=== PATIENT | male | born 1955 | race Caucasian/White ===

== ENCOUNTER → 2021-10-04 13:42 | Outpatient (CLI) | payer OTHER, SELFPAY ==
--- NOTE | 2021-10-04 13:56 | CT_ITS ---
STUDY: CT CHEST, ABDOMEN T PELVIS WITH CONTRAST REASON FOR EXAM: Male, 66 years old. 60 pound weight loss within 2 years. RADIATION DOSAGE (If Supplied By Facility): CTDIvol = ( 13.97 ) mGy, DLP = ( 1282.7 ) mGycm TECHNIQUE: Transaxial imaging was performed following intravenous administration of IV 100mL Isovue-300. Individualized dose optimization techniques were used for this CT. COMPARISON: No relevant priors. FINDINGS: CHEST There is a 2.7 sono by 1.5 cm x 4.5 cm well-defined rounded soft tissue density in the subcutaneous tissues overlying the mid thoracic region in the midline. This may represent a sebaceous cyst. The lungs are normal. There is no demonstrated pleural abnormality. There are calcifications of the coronary arteries. There are multiple small lymph nodes within the mediastinum, which are normal in size and morphology most compatible with reactive lymph hyperplasia. Normal hilar regions. Normal unenhanced pulmonary arteries. Normal aorta arch and descending thoracic aorta. There are multi-level degenerative changes of the thoracic spine. ABDOMEN The visualized lung bases are unremarkable. The visualized portions of the heart are within normal limits. Normal liver. Normal gallbladder and extrahepatic biliary system. Normal spleen. There are pancreatic calcifications in the distribution of the ducts consistent with chronic pancreatitis. There is atrophy of the pancreas with the diffusely dilated pancreatic duct. There is a 3.2 cm x 4.3 cm enlargement of the head of the pancreas with multiple cystic findings within the. A portion of the findings may represent a dilated pancreatic duct. This as a mass effect on the duodenum at the level of the ampulla VATER. A mass lesion should be ruled out. Endoscopic correlation is recommended. Normal bilateral adrenal glands. There is a 4.1 cm by 4.4 cm cyst in the upper lateral portion of the right kidney. Normal left kidney. Normal visualized stomach. Normal small intestine. Moderate amount of fecal material is seen in the colon. The appendix is visualized and appears normal. Normal abdominal aorta. Normal inferior vena cava. Normal retroperitoneum. Normal abdominal wall. There are diffuse degenerative changes of the visualized lumbar spine. Grade 1 anterior listhesis of L5 on S1 due to spondylolysis of the pars interarticularis of the L5 vertebrae. PELVIS Normal urinary bladder. A penile prosthesis with the reservoir is seen in the right side of the pelvis. Normal visualized small intestine. Normal visualized colon. There is no pelvic fluid. There is no pelvic lymphadenopathy or mass lesion. Normal visualized pelvic arteries. CT/CT Chest, Abd, Pel w/Contrast IMPRESSION: Pancreatic atrophy with diffuse calcifications within it. Predominantly cystic mass in the head of the pancreas with indentation at the level of the ampulla of VATER. Correlation with the ERCP is recommended. Electronically Signed: Shivam Toscano MD at 15:20 EST , Service support ,
[2021-10-05 07:04] LABS: CREATININE FINGERSTICK 0.57 mg/dL (0.70-1.30); EGFR FINGERSTICK > 60 mL/min (>60)
== END ==
PROVIDERS: PCP Family Medicine
DX: K86.89 Other specified diseases of pancreas (principal); R63.4 Abnormal weight loss; Z87.891 Personal history of nicotine dependence
CPT/HCPCS: 71260; 74177; Q9967

== ENCOUNTER 2025-03-03 18:31 | Inpatient (IN) | payer MEDICARE, SELFPAY ==
[2025-03-03 18:32] VITALS: BP 132/85; PULSE 97; RESP 16; TEMP 36.8; O2SAT 96; BMI 27.6
--- NOTE | 2025-03-03 18:49 | ED.VIS.FALL ---
HPI HPI - Fall History of Present Illness Chief Complaint: Fall Informant: patient and family Narrative Narrative: 69-year-old male tripped over a dog leash landing on his left side. He notes pain medial aspect of the left hip. He states his left arm was tucked underneath him and knocked the wind out of him but is not having any rib pain or any shortness of breath now. He states the arm is fine. He is on apixaban for atrial fibrillation. He denies any head injury. No neck or back pain. Patient has seen prior orthopedics in [place] with [facility] but denies seeing a local orthopedist. [facility] Medical History Diastolic CHF New onset atrial fibrillation (04/2022) Venegas's palsy PUD (peptic ulcer disease) Kidney stone Long QT interval Erectile dysfunction Diverticulosis Essential hypertension Hyperlipidemia Type 2 diabetes mellitus without complication GERD (gastroesophageal reflux disease) Pancreatic insufficiency Home Medications ?Medication ?Instructions ?Recorded ?Last Taken ?Type amlodipine 10 mg tablet 10 mg PO DAILY 05/26/22 Unknown History apixaban 5 mg tablet (Eliquis) 5 mg PO BID 05/26/22 Unknown History atorvastatin 40 mg tablet 40 mg PO QHS 05/26/22 Unknown History insulin glargine 100 unit/mL (3 15 unit subcut DAILY 05/26/22 Unknown History mL) subcutaneous pen (Basaglar KwikPen U-100 Insulin) [id number] 1 cap PO TID 05/26/22 Unknown History 36,000-114,000-180,000 unit capsule,delay rel (Creon) lisinopril 10 mg tablet 10 mg PO DAILY 05/26/22 Unknown History metformin 500 mg tablet,extended 1,000 mg PO DAILY 05/26/22 Unknown History release 24 hr metoprolol succinate 25 mg 25 mg PO DAILY 05/26/22 Unknown History tablet,extended release 24 hr omeprazole 40 mg capsule,delayed 40 mg PO DAILY 05/26/22 Unknown History release sitagliptin phosphate 100 mg 100 mg PO DAILY 05/26/22 Unknown History tablet (Januvia) Allergy/AdvReac Type Severity Reaction Status Date / Time canagliflozin (From Invokana) Allergy Unknown UTI Verified 03/03/25 18:37 saxagliptin (From Onglyza) Allergy Unknown muscle Verified 03/03/25 18:37 aches sildenafil (From Viagra) Allergy Unknown headaches Verified 03/03/25 18:37 Family History Father Cancer CAD (coronary artery disease) Sister Breast cancer Surgical History History of esophagogastroduodenoscopy (EGD) (01/17/18) History of colonoscopy (02/10/12) H/O circumcision (06/09/20) H/O repair of right rotator cuff H/O colonoscopy with polypectomy (01/17/18) Social History Smoking Status: Former smoker Smokeless tobacco user: chewing tobacco Electronic Cigarette Use: with nicotine how long ago did patient quit smokin years ago alcohol intake: current substance use type: does not use caffeine: Yes Type: carbonated beverages, coffee and tea ROS ROS ED Constitutional Constitutional ED: Denies chills, fever(s) or weight loss Eyes Eyes: Denies change in vision or diplopia ENT ENT ED: Denies ear pain, rhinorrhea or sore throat Cardiovascular Cardiovascular: Denies chest pain, orthopnea, palpitations or racing heartbeat Respiratory/Chest Respiratory/Chest: Denies cough, dyspnea or orthopnea Gastrointestinal Gastrointestinal: Denies abdominal pain, diarrhea, nausea or vomiting Genitourinary Genitourinary ED: Denies dysuria, hematuria or urinary frequency Musculoskeletal Musculoskeletal: Reports other Details: Left hip pelvic pain ; Denies arthralgias or myalgias Integumentary Denies abscess or rash Neurologic Neurologic: Denies headache(s) or weakness Psychiatric Psychiatric: Denies anxiety, depression, suicidal ideation or suicidal thoughts Endocrine Endocrinology: Denies polydipsia, polyphagia or polyuria Allergic/Immunologic Allergic/Immunologic ED: Denies mouth swelling, tongue swelling or urticaria EXAM Physical Exam Const Vital Signs: 03/03/25 18:32 03/03/25 18:39 03/03/25 20:21 Temperature 98.2 F 98.2 F Temperature Source Oral Pulse Rate 97 113 H Respiratory Rate 16 18 Respiratory Effort Normal Non-Labored Respiratory Depth Normal Respiratory Pattern Normal Blood Pressure 132/85 H 132/74 H Blood Pressure Mean 100 93 Pulse Ox 96 94 Oxygen Delivery Method Room Air Positive well nourished and well developed General Appearance ED: well developed and NAD HEENT Reports normocephalic, head/scalp atraumatic and moist mucous membranes Eyes PERRL and EOMs intact bilaterally Neck full ROM, no lymphadenopathy, supple and no JVD Chest Wall inspection of chest normal and palpation of chest normal Resp normal respiratory effort and clear to auscultation bilaterally Cardio regular rate, regular rhythm and no murmurs GI normal to inspection, nondistended, normoactive bowel sounds and non-tender Palpation: soft Back/Spine no CVA tenderness and normal ROM Extremity Extremity Narrative: I do not appreciate any shortening or rotation. He has tenderness over the pubic bone on the left. No greater trochanter tenderness. Slight discomfort with logroll. Neurovascular intact distally. General Extremety ED: Negative for edema General Extremity: Negative for edema Neuro oriented x3 and CN's II-XII intact bilaterally Hubbard Coma Scale: document GCS findings Spontaneous Obeys Commands Oriented 15 Sensorium / Orientation: alert Motor Exam: strength 5/5 throughout Psych mental status grossly normal Mood & Affect: Negative for depressed or tearful Skin no rashes or lesions noted and no wounds MDM MDM MDM Narrative Medical decision making narrative: Differential diagnosis includes but not limited to the left hip fracture pubic rami fracture pelvic fracture rib fracture intracranial hemorrhage anticoagulation anemia My independent interpretation of the plain films of the left hip and pelvis is a impacted femoral neck fracture. Independent interpretation of the chest x-ray is no acute process. CT of the brain was obtained which is negative for intracranial hemorrhage. Basic blood work was obtained. Patient received pain medication. I spoke with orthopedics and then hospitalist service. Plan is admission for further management History & Record Review Discussion w/independent historian: Patient and Family Lab Data Attestation: I reviewed the patient's lab results. Labs: Laboratory Results - last 24 hr 03/03/25 19:22 WBC 7.6 RBC 4.54 L Hgb 13.4 Hct 38.0 L MCV 83.7 MCH 29.5 MCHC 35.3 RDW Std Deviation 40.3 RDW Coeff of Jocelin 13.5 Plt Count 167 MPV 9.7 Immature Gran % (Auto) 0.500 Neut % (Auto) 84.8 H Lymph % (Auto) 5.8 L [place] % (Auto) 8.4 Eos % (Auto) 0.1 Baso % (Auto) 0.4 Absolute Neuts (auto) 6.5 Absolute Lymphs (auto) 0.44 L Nucleated RBC % 0 PT 17.8 H INR 1.4 APTT 28.3 Sodium 141 Potassium 3.5 Chloride 105 Carbon Dioxide 23.7 Anion Gap 12 BUN 8 Creatinine 0.84 Estim Creat Clear Calc 82.89 Est GFR (MDRD) Non-Af 94 BUN/Creatinine Ratio 9.3 L Glucose 244 H Calcium 8.9 Total Bilirubin 1.07 AST 44 H ALT 68 H Alkaline Phosphatase 102 Total Protein 6.8 Albumin 3.7 Globulin 3.1 Albumin/Globulin Ratio 1.2 Radiography Diagnostic Testing: Clinical Impression(s) from Imaging Studies Hip/Pelvis X-Ray 03/03/25 18:55 IMPRESSION: Acute impacted femoral neck fracture. Reading Location: [facility] Chest X-Ray 03/03/25 19:04 IMPRESSION: Poor inspiration with some bibasilar atelectasis. Reading Location: [facility] Brain CT 03/03/25 19:13 IMPRESSION: 1. No acute intracranial finding. 2. Findings of chronic microvascular ischemic changes and age-related changes. Reading Location: [facility] EKG Initial EKG: Attestation: I personally reviewed and interpreted this EKG as follows: Comments: Atrial fibrillation with rapid ventricular sponsor 118 bpm. Management Discussion w/another healthcare provider: Hospitalist (Dr Luther) and Oil [employer] Operator Chief (Dr Mckoy) Discharge Plan Dx/Rx/DC Orders Clinical Impression: Anticoagulated, Atrial fibrillation, Fracture of femoral neck, left Disposition Disposition: Acute Care Hospital [facility]
--- NOTE | 2025-03-03 18:55 | RAD_ITS ---
PROCEDURE: HIP, UNI W/ PELVIS 2-3 VIEWS 03/03/2025 REASON FOR EXAM: INJURY Left TECHNIQUE: One (1) view of the left hip FINDINGS: Bones: Acute impacted fracture of the transcervical femoral neck. Joints: Unremarkable. Soft tissues: Penile implant. Other: RAD/HIP, UNI W/ Pelvis 2-3 Views IMPRESSION: Acute impacted femoral neck fracture. Reading Location: [id number]
--- NOTE | 2025-03-03 19:04 | RAD_ITS ---
PROCEDURE: CHEST 1 VIEW (PORTABLE) 03/03/2025 REASON FOR EXAM: FALL TECHNIQUE: Frontal view of the chest. COMPARISON: None FINDINGS: Hardware: None Heart: Unremarkable. Lungs: Poor inspiration with some bibasilar atelectasis. Bones: Mild dextroscoliosis of the thoracic spine. Other: None RAD/Chest 1 View (Portable) IMPRESSION: Poor inspiration with some bibasilar atelectasis. Reading Location: [id number]
[2025-03-03] MEDS: oxyCODONE 5 MG Tablet PO (19:10)
--- NOTE | 2025-03-03 19:13 | CT_ITS ---
EXAM: BRAIN/HEAD WITHOUT CONTRAST CLINICAL HISTORY: 69 y/o M with FALL. COMPARISON: None. TECHNIQUE: Routine CT imaging of the head without IV contrast. Additional multiplanar reformats were obtained. Dose reduction techniques were used including intermediate exposure control (AEC),iterative reconstruction technique, and/or mA and/or KV dose adjustments based on patient's size. FINDINGS: The ventricles, sulci and cisterns are normal for patient age. There is no evidence of intracranial hemorrhage. There is no midline shift, mass effect, or extra-axial collection. Mild scattered supratentorial white matter hypodensities. The harrison-white matter interfaces are otherwise maintained. There are mild, diffuse, symmetrical, periventricular and subcortical white matter lucencies, a nonspecific finding, which may represent sequela of small vessel disease in a patient of this age. Retention cyst or polyp within the right maxillary sinus. The visualized paranasal sinuses and mastoids are otherwise unremarkable. Unremarkable orbits. No acute calvarial fracture or scalp hematoma. CT/Brain/Head without Contrast IMPRESSION: 1. No acute intracranial finding. 2. Findings of chronic microvascular ischemic changes and age-related changes. Reading Location: [id number]
[2025-03-03 19:35] LABS: Absolute Lymphocyte Count 0.44 X10^3/uL (0.83-4.51); Absolute Neutrophil Count 6.5 X10^3/uL (2.0-7.7); Basophil# 0.03 X10^3/uL; Basophil% 0.4 % (0-1); Eosinophil# 0.01 X10^3/uL; Eosinophils% 0.1 % (0-5); Hemoglobin 13.4 g/dL (13.0-16.5); Lymphocyte # 0.44 X10^3/ul (0.83-4.51); Lymphocyte % 5.8 % (19-41); Mean Corp Hgb Conc 35.3 g/dL (32-36); Mean Corpuscular Hgb 29.5 pg (27.0-32.0); Mean Corpuscular Volume 83.7 fL (80-94); Mean Platelet Vol. 9.7 fl (6.2-12.0); Monocyte# 0.64 X10^3/uL; Monocyte% 8.4 % (0-10); NRBC Flagged by Analyzer 0 % (0-5); Neutrophil # 6.45 X10^3/uL (2.7-7.7); Neutrophil % 84.8 % (47-70); POSITIVE DIFFERENTIAL YES; Platelet Count 167 K/mm3 (150-450); RBC Distribution Width CV 13.5 % (11.6-14.6); RBC Distribution Width SD 40.3 fl (35.1-43.9); Red Blood Count 4.54 M/mm3 (4.6-6.2); White Blood Count 7.6 K/mm3 (4.4-11.0)
--- NOTE | 2025-03-03 19:39 | EKG12_ITS ---
Test Reason : A-FIB Blood Pressure : */* mmHG Vent. Rate : 118 BPM Atrial Rate : * BPM P-R Int : * ms QRS Dur : 104 ms QT Int : 298 ms P-R-T Axes : * -18 -37 degrees QTcB Int : 417 ms Atrial fibrillation with rapid ventricular response Possible Lateral infarct , age undetermined Inferior infarct , age undetermined Abnormal ECG Confirmed by JESSENIA MCLEAN, ARCHANA ([id number]), electronic news gathering editor ADAMS VEGA ([id number]) on 03/04/2025 8:07:33 AM Referred By: Mio Luther Confirmed By: ARCHANA RUELAS MD
--- NOTE | 2025-03-03 19:50 | PCA ---
NO OLD EKG
[2025-03-03 19:54] LABS: International Normalized Ratio 1.4; Prothrombin Time (Protime)PT. 17.8 SECONDS (11.7-14.9)
[2025-03-03 19:55] LABS: Partial Thromboplast Time 28.3 Seconds (24.1-36.2)
--- NOTE | 2025-03-03 20:06 | HP.PCM.HOS_ITS ---
[facility] - General General Date of Admission: 03/03/25 Date of Service: 03/03/25 Chief Complaint: Left Femoral Neck Fracture. [facility] Narrative CARLOS A MEI, is a 69 M with a past medical history of essential hypertension; on amlodipine, metoprolol and lisinopril, hyperlipidemia; on atorvastatin, overweight; with BMI of 27.6 this admission, DM-2; of unknown control on metformin, sitagliptin an insulin glargine 15U sq daily, chronic atrial fibrillation (since 2021); on apixaban, history of long QT interval, history of chronic diastolic CHF; with preserved LVEF, history of pancreatic insufficiency; on pancreatic enzymes AC, history of ED; s/p penile implant with intolerance to sildenafil (headache), history of Venegas's palsy, history of renal calculi, history of diverticulosis, history of colonoscopy; s/p polypectomies (2001+2017), GERD with history of PUD; on omeprazole and OA; s/p Right rotator cuff repair who presents to [facility] ER complaining of Left hip pain after fall. Mr. Mei reports his symptoms began approximately one hour prior to arrival after he tripped over a dog leash and fell onto his Left side. He denies LOC or significant head trauma with is fall. He states his Left arm was tucked behind him and he had the wind knocked out of him with subsequent severe Left hip pain and inability to ambulate. He also denies other significant pain or injury with is fall, fever, chills, nausea, vomiting, diarrhea, constipation, abdominal pain, chest pain or headache. In the ER he was noted to have X-ray evidence of acute impacted Left femoral neck fracture a nd he was then admitted to the general medical floor for ongoing care for a stay that is expected to extend beyond 2 midnights. [facility] Medical History Diastolic CHF New onset atrial fibrillation (04/2022) Venegas's palsy PUD (peptic ulcer disease) Kidney stone Long QT interval Erectile dysfunction Diverticulosis Essential hypertension Hyperlipidemia Type 2 diabetes mellitus without complication GERD (gastroesophageal reflux disease) Pancreatic insufficiency Home Medications ?Medication ?Instructions ?Recorded ?Last Taken ?Type amlodipine 10 mg tablet 10 mg PO DAILY bp 05/26/22 U nknown History apixaban 5 mg tablet (Eliquis) 5 mg PO BID blood thinn er 05/26/22 Unknown History atorvastatin 40 mg tablet 40 mg PO QHS hld 05/26/22 Un known History insulin glargine 100 unit/mL (3 30 unit subcut DAILY d m 05/26/22 Unknown History mL) subcutaneous pen (Basaglar KwikPen U-100 Insulin) [id number] 1 cap PO TID pancreatic 04/29 Unknown History 36,000-114,000-180,000 unit capsule,delay rel (Creon) lisinopril 10 mg tablet 10 mg PO DAILY bp 05/26/22 U nknown History metformin 500 mg tablet,extended 1,000 mg PO DAILY brianne betes 05/26/22 Unknown History release 24 hr metoprolol succinate 25 mg 25 mg PO DAILY heart Unknown History tablet,extended release 24 hr omeprazole 40 mg capsule,delayed 40 mg PO DAILY gerd 0 05/26/22 Unknown History release sitagliptin phosphate 100 mg 100 mg PO DAILY see md Unknown History tablet (Januvia) Allergy/AdvReac Type Severity Reaction Status Date / Time canagliflozin (From Invokana) Allergy Unknown UTI Verified 03/03/25 18:37 saxagliptin (From Onglyza) Allergy Unknown muscle Verified 03/03/25 18:37 aches sildenafil (From Viagra) Allergy Unknown headaches Verified 03/03/25 18:37 Family History Father Cancer CAD (coronary artery disease) Sister Breast cancer Surgical History History of esophagogastroduodenoscopy (EGD) (01/17/18) History of colonoscopy (02/10/12) H/O circumcision (06/09/20) H/O repair of right rotator cuff H/O colonoscopy with polypectomy (01/17/18) Social History Smoking Status: Former smoker Smokeless tobacco user: chewing tobacco Electronic Cigarette Use: with nicotine how long ago did patient quit smokin years ago alcohol intake: current substance use type: does not use caffeine: Yes Type: carbonated beverages, coffee and tea ROS ROS Narrative Review of Systems: Constitutional: Patient denies fever or chills. Eyes: Patient denies changes in vision or discharge from eyes. ENT: Patient denies runny nose, sore throat or ear pain. Resp: Patient denies shortness of breath or cough. CV: Patient denies chest pain, palpitations, heart racing or lower extremity edema. GI: Patient denies abdominal pain, nausea, vomiting, diarrhea or constipation. : Patient denies dysuria, hematuria or urinary frequency. MSK: Patient admits to Left hip pain made worse with movement but not fully relieved by rest. Skin: Patient denies abscess, rash, wounds or jaundice. Psych: Patient denies symptoms of uncontrolled depression or anxiety. Neuro: Patient denies headache, paresthesias or focal neurologic deficits. Allergy: Patient denies lip swelling, tongue swelling or urticaria. Hematology: Patient admits to easy bleeding on apixaban. Endocrinology: Patient denies polyuria, polydipsia, polyphagia or heat/cold intolerance. 14 point ROS otherwise negative except for positives noted above in HPI. Vital Signs Vital Signs Vital Signs: 03/03/25 18:32 03/03/25 18:39 Temperature 98.2 F Temperature Source Oral Pulse Rate 97 Respiratory Rate 16 Respiratory Effort Normal Non-Labored Respiratory Depth Normal Respiratory Pattern Normal Blood Pressure 132/85 H Blood Pressure Mean 100 Pulse Ox 96 Oxygen Delivery Method Room Air Weight Weight: 176 lb 2.389 oz Body Mass Index (BMI) 27.6 Physical Exam Const alert, oriented x3, no apparent distress, average body habitus and healthy appearing General Appearance: cooperative HEENT normocephalic, head/scalp atraumatic, hearing grossly normal bilaterally and moist oral mucous membranes Eyes PERRL, EOMs intact bilaterally and conjunctivae normal Neck no lymphadenopathy, supple and no JVD Resp normal respiratory effort, no retractions, no use of accessory muscles and clear to auscultation bilaterally Cardio Cardio Narrative: Irregularly irregular at ~80 bpm. GI normal to inspection, nondistended, normoactive bowel sounds, soft to palpation, non-tender and non-distended Extremity Extremity Narrative: LLE shortened and externally rotated with positive log-roll and no signs of neurovascular compromise with good pulses and sensation throughout. Skin Skin Narrative: Patient has no evidence of rash, abscess, wound or jaundice. Neuro oriented x3, CN's II-XII intact bilaterally, moves all extremities and no focal motor deficits Sensorium / Orientation: awake, alert, oriented to person, oriented to place and oriented to time Speech: speech normal Psych affect normal Results Medical Records Data Attestation: I reviewed the patient's medical records Lab / Micro Data Attestation: I reviewed the patient's lab results. 03/03/25 19:22 03/03/25 19:22 Labs: Laboratory Results - last 24 hr 03/03/25 19:22: WBC 7.6, RBC 4.54 L, Hgb 13.4, Hct 38.0 L, MCV 83.7, MCH 29.5, MCHC 35.3, RDW Std Deviation 40.3, RDW Coeff of Jocelin 13.5, Plt Count 167, MPV 9.7, Immature Gran % (Auto) 0.500, Neut % (Auto) 84.8 H, Lymph % (Auto) 5.8 L, [place] % (Auto) 8.4, Eos % (Auto) 0.1, Baso % (Auto) 0.4, Absolute Neuts (auto) 6.5, Absolute Lymphs (auto) 0.44 L, Nucleated RBC % 0, PT 17.8 H, INR 1.4, APTT 28.3 Imaging Radiology Impression Hip/Pelvis X-Ray 03/03/25 18:55 IMPRESSION: Acute impacted femoral neck fracture. Reading Location: [facility] Chest X-Ray 03/03/25 19:04 IMPRESSION: Poor inspiration with some bibasilar atelectasis. Reading Location: [facility] Brain CT 03/03/25 19:13 IMPRESSION: 1. No acute intracranial finding. 2. Findings of chronic microvascular ischemic changes and age-related changes. Reading Location: [facility] Assessment & Plan Assessment/Plan (1) Fracture of femoral neck, left: QUALIFIERS: Encounter type: initial encounter Fracture type: c losed Qualified Code(s): S72.002A - Fracture of unspecified part of neck of left femur, initial encounter for closed fracture (2) Atrial fibrillation: QUALIFIERS: Atrial fibrillation type: unspecified chronic Q ualified Code(s): I48.20 - Chronic atrial fibrillation, unspecified (3) Anticoagulated: (4) Essential hypertension: PLAN: Plan 1. X-ray evidence of acute impacted Left femoral neck fracture after fall - Admit to general medical floor with telemetric monitoring. Keep n.p.o. after midnight on March 04, 2025 for planned ORIF with procedure delayed due to patient already being on apixaban at time of injury. Give acetaminophen as needed for [id number] (level 1-5/10) pain or fever. Give morphine IV as needed for severe (level 6-10/10) pain. Finally, orthopedic surgery consultation by Dr. Mckoy is appreciated in advance, with anticipated delay in surgical intervention until March 05, 2025 due to patient being on apixaban. 2. Chronic atrial fibrillation (since 2021); on apixaban complicating #1 - Hold apixaban until ORIF has been completed. 3. Essential hypertension; on amlodipine, metoprolol and lisinopril - Maintain home regimen plus give prn IV hydralazine for systolic blood pressure > 160 mmHg. 4. Hyperlipidemia; on atorvastatin - Resume statin. 5. Overweight; with BMI of 27.6 this admission - Weight loss will be recommended. Check TSH. 6. DM-2; of unknown control on metformin, sitagliptin an insulin glargine 15U sq daily - Patient to be decreased to insulin glargine 8U sq daily plus lowest intensity SSI. Hold metformin and sitagliptin while inpatient. Check HgbA1c to objectively assess quality of diabetic control. 7. History of long QT interval - Noted. 8. History of chronic diastolic CHF; with preserved LVEF - Noted. 9. History of pancreatic insufficiency; on pancreatic enzymes AC - Continue pancreatic enzymes as previous once patient resumes oral intake. 10. History of ED; s/p penile implant with intolerance to sildenafil (headache) - Noted. 11. History of Venegas's palsy - Noted. 12. History of renal calculi - Noted with no evidence of recurrence at this time. 13. History of diverticulosis - Noted. 14. History of colonoscopy; s/p polypectomies (2001+2017) - Noted. 15. GERD with history of PUD; on omeprazole - Continue PPI as before. 16. OA; s/p Right rotator cuff repair - Give acetaminophen according to pain scale outlined in #1. 17. DVT prophylaxis - SCD's only on RLE. We will hold off on preoperative blood thinners in patients with traumatic fracture especially in this case with patient already on apixaban which will be held. Orthopedic surgeon to decide upon postoperative DVT prophylaxis. Total time: Approximately (but not less than) 55 minutes. Charges/Coding Visit Charges Inpatient E&M: 05816 Init Hosp L2
[2025-03-03 20:21] VITALS: BP 132/74; PULSE 113; RESP 18; TEMP 36.8; O2SAT 94
[2025-03-03 20:22] LABS: ALB/GLOB Ratio 1.2 RATIO (0.9-2.4); AST(SGOT) 44 U/L (<=37); Alanine Aminotransfer ALT/SGPT 68 U/L (<=46); Albumin, Serum 3.7 g/dL (3.4-4.8); Alkaline Phosphatase 102 U/L (40-129); Anion Gap 12 (5-15); BUN 8 mg/dL (4-19); BUN/Creat Ratio 9.3 RATIO (10-20); Calcium,Total 8.9 mg/dL (7.6-11.0); Carbon Dioxide 23.7 mmol/L (21.0-32.0); Chloride 105 mmol/L (98-108); Creatinine, Serum 0.84 mg/dL (0.70-1.20); EST Glomerular Filtration Rate 94 (>60); Estimated Creatinine Clearance 82.89 ml/min (50-250); Globulin 3.1 g/dL (2.2-4.2); Glucose 244 mg/dL (70-99); Potassium 3.5 mmol/L (3.3-5.1); Protein, Total 6.8 g/dL (5.9-8.4); Sodium Level 141 mmol/L (133-145); Total Bilirubin 1.07 mg/dL (0.00-1.30)
[2025-03-03 20:32] VITALS: BP 131/78; PULSE 98; RESP 14; O2SAT 97
--- NOTE | 2025-03-03 20:50 | CM.ED ---
Social Work SW met with patient and patients son. Patient stated that he was walking the dog when he got tangled in the dog leash, causing him to fall. Patients son stated that patient would be coming to live with him during recovery as the son only has one step to enter a one story home. Patient stated that he agreed with the plan. Jen Cox, DRAWING PRESS OPERATOR, [employer]
[2025-03-03 20:59] VITALS: BMI 26.4
[2025-03-03 21:03] VITALS: PULSE 111
[2025-03-03 21:11] VITALS: BP 137/56; PULSE 117; RESP 18; TEMP 36.8; O2SAT 95
[2025-03-03] MEDS: 0.9% Saline Lock 10 ML Syringe IV (21:34)
[2025-03-03] MEDS: 0.9% Normal Saline (1000mL) 1,000 ML 70 ML IV (21:34)
[2025-03-03] MEDS: Atorvastatin Calcium 40 MG Tablet PO (21:44)
[2025-03-03 22:17] LABS: Magnesium 1.5 mg/dL (1.5-2.2)
[2025-03-03 22:52] LABS: Bedside Glucose 161 mg/dL (74-106)
[2025-03-04 00:20] LABS: Bedside Glucose 135 mg/dL (74-106)
[2025-03-04 02:30] VITALS: BP 117/77; PULSE 99; RESP 16; TEMP 36.6; O2SAT 94
[2025-03-04] MEDS: Morphine 2 MG/ML Syringe IV (03:43)
[2025-03-04 04:35] LABS: Absolute Lymphocyte Count 0.93 X10^3/uL (0.83-4.51); Absolute Neutrophil Count 5.7 X10^3/uL (2.0-7.7); Basophil# 0.03 X10^3/uL; Basophil% 0.4 % (0-1); Eosinophil# 0.01 X10^3/uL; Eosinophils% 0.1 % (0-5); Hematocrit 37.2 % (40-54); Lymphocyte # 0.93 X10^3/ul (0.83-4.51); Lymphocyte % 12.8 % (19-41); Mean Corp Hgb Conc 34.9 g/dL (32-36); Mean Corpuscular Hgb 29.3 pg (27.0-32.0); Mean Platelet Vol. 9.8 fl (6.2-12.0); Monocyte# 0.57 X10^3/uL; Monocyte% 7.9 % (0-10); NRBC Flagged by Analyzer 0 % (0-5); Neutrophil % 78.5 % (47-70); Platelet Count 178 K/mm3 (150-450); RBC Distribution Width CV 13.6 % (11.6-14.6); Red Blood Count 4.43 M/mm3 (4.6-6.2); White Blood Count 7.3 K/mm3 (4.4-11.0)
[2025-03-04 05:11] LABS: ALB/GLOB Ratio 1.2 RATIO (0.9-2.4); AST(SGOT) 30 U/L (<=37); Alanine Aminotransfer ALT/SGPT 56 U/L (<=46); Albumin, Serum 3.5 g/dL (3.4-4.8); Alkaline Phosphatase 94 U/L (40-129); Anion Gap 12 (5-15); BUN 8 mg/dL (4-19); BUN/Creat Ratio 11.6 RATIO (10-20); Calcium,Total 8.6 mg/dL (7.6-11.0); Carbon Dioxide 24.1 mmol/L (21.0-32.0); Chloride 104 mmol/L (98-108); Creatinine, Serum 0.71 mg/dL (0.70-1.20); EST Glomerular Filtration Rate 99 (>60); Estimated Creatinine Clearance 80.33 ml/min (50-250); Glucose 144 mg/dL (70-99); Phosphorus 3.2 mg/dL (2.7-4.5); Potassium 3.1 mmol/L (3.3-5.1); Protein, Total 6.5 g/dL (5.9-8.4); Sodium Level 141 mmol/L (133-145); Total Bilirubin 1.29 mg/dL (0.00-1.30)
[2025-03-04 06:00] VITALS: BMI 27.8
[2025-03-04 06:36] LABS: Bedside Glucose 105 mg/dL (74-106)
[2025-03-04 06:36] LABS: Hemoglobin A1c 8.8 % (<=5.6)
[2025-03-04 08:18] VITALS: BP 112/72; PULSE 108; RESP 18; TEMP 36.9; O2SAT 93
[2025-03-04 08:24] VITALS: PULSE 108
[2025-03-04] MEDS: Creon 12,000 unit DR CapSULE 3 CAP PO ×3 (08:24→16:46)
[2025-03-04] MEDS: Insulin Glargine-YFGN 100 UNIT/ML Pen 8 UNIT SC (08:24)
[2025-03-04] MEDS: amLODIPine 10 MG Tablet PO (08:24)
[2025-03-04] MEDS: Lisinopril 10 MG Tablet PO (08:24)
[2025-03-04] MEDS: Metoprolol(XL)Succ 25 MG Tablet PO (08:24)
[2025-03-04] MEDS: Pantoprazole Sodium 40 MG Tablet PO (08:24)
--- NOTE | 2025-03-04 08:43 | PN.HOSP_ITS ---
Reason for Visit Reason for Visit: Left hip pain status post mechanical fall Subjective Subjective Mr. Oliveira is a 69-year-old white male who presented to the emergency department [facility] on 03/03/2025 with left hip pain after mechanical fall. Patient reported that he was out with his dog and tripped over the leash and fell onto his left side. He denied loss of consciousness or significant head trauma but did complain of left hip pain following his fall. Fall resulted in severe pain and the patient was unable to ambulate following some squad was called. Vital signs on presentation showed temperature 98.2, heart rate 97, respiratory 16, blood pressure is 132/85 and pulse ox was 96% on room air. CBC was unremarkable. Coags were slightly elevated but anticipated due to apixaban use. Chemistry panel showed an elevated glucose at 244. Transaminases were elevated slightly but normalized this morning. Hip and pelvic x-rays showed an acute impacted femoral neck fracture, chest x-ray was unremarkable other than poor inspiratory effort and some basilar atelectasis bilaterally. CT of the brain was unremarkable other than for chronic microvascular ischemic changes. The case was discussed with orthopedic surgery and they will evaluate the patient today. I do anticipate surgery soon depending on length of time Shay needs to be held his are not clear what his last dose was at this time. Patient states his pain is well-controlled preoperatively. Denies any current issues. Current plan is to go home with his son and his family is one-step to enter. I did discuss with patient we will have to see how he does with therapy after surgery and he voiced understanding. Does not seem resistant to placement if needed. Objective Data Objective Data Vital Signs: Vital Signs Temp Pulse Resp BP Pulse Ox O2 Del Method 98.5 F 108 H 18 112/72 93 Room Air 03/04/25 08:18 03/04/25 08:24 03/04/25 08:18 03/04/25 08:18 03/04/25 08:18 03/04/25 08:20 Oxygen Delivery Method Room Air Weight: 80.5 kg Body Mass Index (BMI) 27.8 Intake & Output: Intake and Output for Last 24 Hours 03/02/25 03/03/25 03/04/25 23:59 23:59 23:59 Output Total 700 / 700 Balance -700 / -700 Lab / Micro Data 03/04/25 03:52 03/04/25 03:52 Labs: Laboratory Results - last 24 hr 03/03/25 19:22: WBC 7.6, RBC 4.54 L, Hgb 13.4, Hct 38.0 L, MCV 83.7, MCH 29.5, MCHC 35.3, RDW Std Deviation 40.3, RDW Coeff of Jocelin 13.5, Plt Count 167, MPV 9.7, Immature Gran % (Auto) 0.500, Neut % (Auto) 84.8 H, Lymph % (Auto) 5.8 L, [place] % (Auto) 8.4, Eos % (Auto) 0.1, Baso % (Auto) 0.4, Absolute Neuts (auto) 6.5, Absolute Lymphs (auto) 0.44 L, Nucleated RBC % 0, PT 17.8 H, INR 1.4, APTT 28.3, Sodium 141, Potassium 3.5, Chloride 105, Carbon Dioxide 23.7, Anion Gap 12, BUN 8, Creatinine 0.84, Estim Creat Clear Calc 82.89, Est GFR (MDRD) Non-Af 94, BUN/Creatinine Ratio 9.3 L, Glucose 244 H, Calcium 8.9, Magnesium 1.5, Total Bilirubin 1.07, AST 44 H, ALT 68 H, Alkaline Phosphatase 102, Total Protein 6.8, Albumin 3.7, Globulin 3.1, Albumin/Globulin Ratio 1.2 03/03/25 21:27: POC Glucose 161 H 03/04/25 00:00: POC Glucose 135 H 03/04/25 03:52: WBC 7.3, RBC 4.43 L, Hgb 13.0, Hct 37.2 L, MCV 84.0, MCH 29.3, MCHC 34.9, RDW Std Deviation 41.0, RDW Coeff of Jocelin 13.6, Plt Count 178, MPV 9.8, Immature Gran % (Auto) 0.300, Neut % (Auto) 78.5 H, Lymph % (Auto) 12.8 L, [place] % (Auto) 7.9, Eos % (Auto) 0.1, Baso % (Auto) 0.4, Absolute Neuts (auto) 5.7, Absolute Lymphs (auto) 0.93, Nucleated RBC % 0, Sodium 141, Potassium 3.1 L , Chloride 104, Carbon Dioxide 24.1, Anion Gap 12, BUN 8, Creatinine 0.71, Estim Creat Clear Calc 80.33, Est GFR (MDRD) Non-Af 99, BUN/Creatinine Ratio 11.6, G lucose 144 H, Hemoglobin A1c 8.8, Calcium 8.6, Phosphorus 3.2, Total Bilirubin 1.29, AST 30, ALT 56 H, Alkaline Phosphatase 94, Total Protein 6.5, Albumin 3.5, Globulin 3.0, Albumin/Globulin Ratio 1.2, TSH 2.160, Blood Type A POSITIVE, Antibody Screen NEGATIVE 03/04/25 06:17: POC Glucose 105 Radiography Diagnostic Testing: Radiology Impression Hip/Pelvis X-Ray 03/03/25 18:55 IMPRESSION: Acute impacted femoral neck fracture. Reading Location: [facility] Chest X-Ray 03/03/25 19:04 IMPRESSION: Poor inspiration with some bibasilar atelectasis. Reading Location: [facility] Brain CT 03/03/25 19:13 IMPRESSION: 1. No acute intracranial finding. 2. Findings of chronic microvascular ischemic changes and age-related changes. Reading Location: [facility] Physical Exam Const alert, oriented x3, no apparent distress, average body habitus, healthy appearing and well nourished Constitutional Narrative: Pleasant, elderly, white male, lying in bed, appears comfortable currently, nontoxic HEENT head/scalp atraumatic and moist oral mucous membranes Head and Scalp: normocephalic Resp normal respiratory effort, no retractions, no use of accessory muscles and clear to auscultation bilaterally Auscultation: Negative for rales, rhonchi or wheezes Cardio regular rate, regular rhythm, S1 normal heart sound, S2 normal heart sound, no murmurs, no rub, no gallops and no clicks GI normal to inspection, nondistended, normoactive bowel sounds, soft to palpation and non-tender Extremity no clubbing, cyanosis or edema Extremity Narrative: Left lower extremity is slightly shortened and externally rotated Neuro oriented x3 and no focal motor deficits Neuro Narrative: Unable to move left lower extremity due to pain left hip Speech: speech normal Psych affect normal Psych Narrative: Very pleasant, interacts appropriately Assessment & Plan Assessment/Plan (1) Fracture of femoral neck, left: QUALIFIERS: Encounter type: initial encounter Fracture type: kirsty mcdonnell Qualified Code(s): S72.002A - Fracture of unspecified part of neck of left femur, initial encounter for closed fracture (2) Fall: PLAN: Plan Acute impacted left femoral neck fracture status post mechanical fall -Patient was tripped by his dog's leash -It appears that anticipated surgery on due to Eliquis use diet and make n.p.o. after midnight -Transition acetaminophen from as needed to scheduled 1 g 3 times daily add as needed oxycodone -Continue morphine for breakthrough -Long-term DVT prophylaxis per orthopedic surgery -Weightbearing status per orthopedic surgery -PT/OT consultation postoperatively -Ortho consult pending Hypokalemia -P.o. potassium replacement -Recheck in a.m. -Check a.m. magnesium level Chronic atrial fibrillation -Apixaban on hold -continue metoprolol DM-2 -A1c is 8.8 -Hold home metformin/Januvia -Cardiac/carb controlled diet -Continue home basal insulin will reduce dose this patient will be n.p.o. -Baseline doses 30 will use 15 for now since anticipated to be n.p.o. after midnight -SSI medium high-dose Essential hypertension/hyperlipidemia -Continue home statin -Will hold lisinopril until postoperative -continue metoprolol -Continue home amlodipine -As needed hydralazine Chronic diastolic heart failure -Patient is not on any diuretics at baseline -Hold IV fluids for now -Patient is currently euvolemic History of pancreatic insufficiency -Continue home Creon Erectile dysfunction -Patient with penile implant GERD -Continue home PPI DVT prophylaxis -SCDs for now -Restart Eliquis when able at the direction of orthopedic surgery CODE STATUS -Currently listed as CODE STATUS-unverified will verify with patient Charges/Coding Visit Charges Inpatient E&M: 90480 Subs Hosp L2
[2025-03-04] MEDS: Acetaminophen 500 MG Tablet 1000 MG PO ×3 (09:39→21:27)
[2025-03-04] MEDS: oxyCODONE 5 MG Tablet PO ×2 (09:39→20:27)
[2025-03-04 11:49] LABS: Bedside Glucose 112 mg/dL (74-106)
--- NOTE | 2025-03-04 12:54 | CONS.ORTHO ---
HPI Consult Data Date of Consult: 03/04/25 HPI Narrative HPI Narrative: CARLOS A MEI, is a 69 M who presents left hip pain after ground-level fall at home. He was admitted last night with left hip femoral neck fracture. I was consulted for orthopedics. I saw the patient in 321 today at noon. Patient was in bed. Pain well-controlled. Complains of pain in the left groin and hip region. Denies any other injuries. Able to move both upper extremities and right lower extremity. Prior to the injury he was able to walk without any ambulatory aid and kept himself active. He retired June of last year. He is on Eliquis with last dose yesterday morning. He is a known diabetic with A1c performed today which is 8.8. His blood sugar numbers have been in the 100s since last night. He also has cardiac comorbidities such as A-fib. [facility] Medical History Diastolic CHF New onset atrial fibrillation (04/2022) Venegas's palsy PUD (peptic ulcer disease) Kidney stone Long QT interval Erectile dysfunction Diverticulosis Essential hypertension Hyperlipidemia Type 2 diabetes mellitus without complication GERD (gastroesophageal reflux disease) Pancreatic insufficiency Home Medications ?Medication ?Instructions ?Recorded ?Last Taken ?Type amlodipine 10 mg tablet 10 mg PO DAILY bp 05/26/22 Unknown History apixaban 5 mg tablet (Eliquis) 5 mg PO BID blood thinner 05/26/22 Unknown History atorvastatin 40 mg tablet 40 mg PO QHS hld 05/26/22 Unknown History insulin glargine 100 unit/mL (3 30 unit subcut DAILY dm 05/26/22 Unknown History mL) subcutaneous pen (Basaglar KwikPen U-100 Insulin) [id number] 1 cap PO TID pancreatic 05/26/22 Unknown History 36,000-114,000-180,000 unit capsule,delay rel (Creon) lisinopril 10 mg tablet 10 mg PO DAILY bp 05/26/22 Unknown History metformin 500 mg tablet,extended 1,000 mg PO DAILY diabetes 05/26/22 Unknown History release 24 hr metoprolol succinate 25 mg 25 mg PO DAILY heart 05/26/22 Unknown History tablet,extended release 24 hr omeprazole 40 mg capsule,delayed 40 mg PO DAILY gerd 06/30/22 Unknown History release sitagliptin phosphate 100 mg 100 mg PO DAILY see 05/26/22 Unknown History tablet (Januvia) Allergy/AdvReac Type Severity Reaction Status Date / Time canagliflozin (From Invokana) Allergy Unknown UTI Verified 03/03/25 18:37 saxagliptin (From Onglyza) Allergy Unknown muscle Verified 03/03/25 18:37 aches sildenafil (From Viagra) Allergy Unknown headaches Verified 03/03/25 18:37 Family History Father Cancer CAD (coronary artery disease) Sister Breast cancer Surgical History History of esophagogastroduodenoscopy (EGD) (01/17/18) History of colonoscopy (02/10/12) H/O circumcision (06/09/20) H/O repair of right rotator cuff H/O colonoscopy with polypectomy (01/17/18) Social History Smoking Status: Former smoker Smokeless tobacco user: chewing tobacco Electronic Cigarette Use: with nicotine how long ago did patient quit smokin years ago alcohol intake: current substance use type: does not use caffeine: Yes Type: carbonated beverages, coffee and tea Vital Signs Vital Signs Vital Signs: 03/03/25 18:32 03/03/25 18:39 03/03/25 20:21 Temperature 98.2 F 98.2 F Temperature Source Oral Pulse Rate 97 113 H Respiratory Rate 16 18 Respiratory Effort Normal Non-Labored Respiratory Depth Normal Respiratory Pattern Normal Blood Pressure 132/85 H 132/74 H Blood Pressure Mean 100 93 Blood Pressure Source Blood Pressure Position Blood Pressure Location Pulse Ox 96 94 Oxygen Delivery Method Room Air 03/03/25 20:32 03/03/25 21:00 03/03/25 21:03 Temperature Temperature Source Pulse Rate 98 111 H Respiratory Rate 14 Respiratory Effort Normal Non-Labored Respiratory Depth Normal Respiratory Pattern Normal Blood Pressure 131/78 H Blood Pressure Mean 95 Blood Pressure Source Blood Pressure Position Blood Pressure Location Pulse Ox 97 Oxygen Delivery Method Room Air Room Air 03/03/25 21:11 03/04/25 02:30 03/04/25 07:22 Temperature 98.3 F 98 F Temperature Source Oral Temporal Pulse Rate 117 H 99 Respiratory Rate 18 16 Respiratory Effort Respiratory Depth Respiratory Pattern Blood Pressure 137/56 H 117/77 Blood Pressure Mean 83 90 Blood Pressure Source Monitor Monitor Blood Pressure Position Semi-Fowlers Semi-Fowlers Blood Pressure Location Right Arm Left Arm Pulse Ox 95 94 Oxygen Delivery Method Room Air Room Air Room Air 03/04/25 08:18 03/04/25 08:20 03/04/25 08:24 Temperature 98.5 F Temperature Source Oral Pulse Rate 108 H 108 H Respiratory Rate 18 Respiratory Effort Normal Non-Labored Respiratory Depth Normal Respiratory Pattern Normal Blood Pressure 112/72 Blood Pressure Mean 85 Blood Pressure Source Monitor Blood Pressure Position Semi-Fowlers Blood Pressure Location Left Arm Pulse Ox 93 Oxygen Delivery Method Room Air Room Air Weight Weight: 177 lb 7.554 oz Body Mass Index (BMI) 27.8 Physical Exam Narrative Exams of the left hip shows tenderness over the anterior lateral aspects. Patient is unable to move left lower extremity. Right lower extremity and bilateral upper extremity show full range of painless mobility in all joints. Distal neurovascular exam in the left lower extremity is intact. Lab / Micro Data 03/04/25 03:52 03/04/25 03:52 Labs: Laboratory Results - last 24 hr 03/03/25 19:22: WBC 7.6, RBC 4.54 L, Hgb 13.4, Hct 38.0 L, MCV 83.7, MCH 29.5, MCHC 35.3, RDW Std Deviation 40.3, RDW Coeff of Jocelin 13.5, Plt Count 167, MPV 9.7, Immature Gran % (Auto) 0.500, Neut % (Auto) 84.8 H, Lymph % (Auto) 5.8 L, [place] % (Auto) 8.4, Eos % (Auto) 0.1, Baso % (Auto) 0.4, Absolute Neuts (auto) 6.5, Absolute Lymphs (auto) 0.44 L, Nucleated RBC % 0, PT 17.8 H, INR 1.4, APTT 28.3, Sodium 141, Potassium 3.5, Chloride 105, Carbon Dioxide 23.7, Anion Gap 12, BUN 8, Creatinine 0.84, Estim Creat Clear Calc 82.89, Est GFR (MDRD) Non-Af 94, BUN/Creatinine Ratio 9.3 L, Glucose 244 H, Calcium 8.9, Magnesium 1.5, Total Bilirubin 1.07, AST 44 H, ALT 68 H, Alkaline Phosphatase 102, Total Protein 6.8, Albumin 3.7, Globulin 3.1, Albumin/Globulin Ratio 1.2 03/03/25 21:27: POC Glucose 161 H 03/04/25 00:00: POC Glucose 135 H 03/04/25 03:52: WBC 7.3, RBC 4.43 L, Hgb 13.0, Hct 37.2 L, MCV 84.0, MCH 29.3, MCHC 34.9, RDW Std Deviation 41.0, RDW Coeff of Jocelin 13.6, Plt Count 178, MPV 9.8, Immature Gran % (Auto) 0.300, Neut % (Auto) 78.5 H, Lymph % (Auto) 12.8 L, [place] % (Auto) 7.9, Eos % (Auto) 0.1, Baso % (Auto) 0.4, Absolute Neuts (auto) 5.7, Absolute Lymphs (auto) 0.93, Nucleated RBC % 0, Sodium 141, Potassium 3.1 L, Chloride 104, Carbon Dioxide 24.1, Anion Gap 12, BUN 8, Creatinine 0.71, Estim Creat Clear Calc 80.33, Est GFR (MDRD) Non-Af 99, BUN/Creatinine Ratio 11.6, Glucose 144 H, Hemoglobin A1c 8.8, Calcium 8.6, Phosphorus 3.2, Total Bilirubin 1.29, AST 30, ALT 56 H, Alkaline Phosphatase 94, Total Protein 6.5, Albumin 3.5, Globulin 3.0, Albumin/Globulin Ratio 1.2, TSH 2.160, Blood Type A POSITIVE, Antibody Screen NEGATIVE 03/04/25 06:17: POC Glucose 105 03/04/25 11:22: POC Glucose 112 H Imaging Radiology Impression Hip/Pelvis X-Ray 03/03/25 18:55 IMPRESSION: Acute impacted femoral neck fracture. Reading Location: [facility] Chest X-Ray 03/03/25 19:04 IMPRESSION: Poor inspiration with some bibasilar atelectasis. Reading Location: [facility] Brain CT 03/03/25 19:13 IMPRESSION: 1. No acute intracranial finding. 2. Findings of chronic microvascular ischemic changes and age-related changes. Reading Location: [facility] Assessment & Plan Assessment/Plan (1) Fracture of femoral neck, left: QUALIFIERS: Encounter type: initial encounter Fracture type: closed Qualified Code(s): S72.002A - Fracture of unspecified part of neck of left femur, initial encounter for closed fracture PLAN: Plan Reviewed x-rays done in the ED last night. These show a left hip intracapsular femoral neck fracture displaced. Discussed treatment options. Explained to him that this is a surgical injury and I recommend a left hip cemented hemiarthroplasty. Surgical treatment will allow early return to weightbearing and activity to reduce recumbency complications. Because of his history of Eliquis. We will schedule the surgery tomorrow to be 48 hours after last dose. Discussed also risk benefits and alternatives. The risks include but are not limited to infection, bleeding, hematoma formation, injury to nerves and vessels, foot drop, limb length discrepancy, cement embolism, DVT, pulm embolism, need for further surgery, need for total hip, dislocation, pneumonia, atelectasis, cardiopulmonary event. Patient understands and agrees to proceed with surgery. Charges/Coding Visit Charges Inpatient E&M: 33051 Init Hosp L3
[2025-03-04 14:17] VITALS: BP 91/64; PULSE 95; RESP 18; TEMP 37.2; O2SAT 95
--- NOTE | 2025-03-04 14:35 | CASEMGMT ---
BERNIE LERNER Assessment: Face to Face with pt for initial transition planning/care coordination assessment. RN YANN introduced self and role at [facility], pt voices understanding and consents to assessment. Pt is A&O x4 and answers all questions appropriately at this time. Pt lying in bed in no distress with son at bedside. Pt agreeable to assessment with son present. Care providers, pharmacy, and demographics verified/updated. Admitting Dx: L hip fx after fall Strata Score: 1 PCP:Thelma Specialists:Tim cardio, unable to recall name Preferred Pharmacy: [facility] Insurance: [employer] [facility] Prescription Benefit: yes LNOK: Wilbert Oliveira, ирина Living Arrangements: Pt lives alone in a mobile home with 4 steps to enter with a rail. Pt reports he is typically indep in ADL/IADLs at home. Pt plans to stay at son's home post op. There is one small step to enter the home and then the home is all on one level. Transportation: Pt drives self and denies concerns with transportation. Family to transport pt until he can drive again. DME:cane, pox, BP cuff, BGM with sufficient supply of strips and lancets, insulin of sufficient supply and needles- Pt has access to a FWW and rollator for post op. HHC/SNF: Denies hx of Pt states no concerns with going home at time of dc to son's home. Pt to have OR tomorrow. Pt states no further concerns/needs. CM to follow. Advised pt to ask CM if any further questions/concerns/needs arise, voices understanding. Pt Goal: Son's home Plan: TBD pending surgery and post op therapy soni [place] RN, CM
[2025-03-04] MEDS: Potassium Chloride Oral Tablet 20 MEQ 40 MEQ PO (15:58)
[2025-03-04 17:05] LABS: Bedside Glucose 128 mg/dL (74-106)
[2025-03-04 20:14] VITALS: O2SAT 94
[2025-03-04 20:25] VITALS: BP 120/77; PULSE 93; RESP 18; TEMP 36.6; O2SAT 95
[2025-03-04] MEDS: Atorvastatin Calcium 40 MG Tablet PO (21:27)
[2025-03-04 22:02] LABS: Bedside Glucose 99 mg/dL (74-106)
[2025-03-05] VITALS (20 sets, daily range): BP systolic 75–131; BP diastolic 58–98; PULSE 82–128; RESP 12–20; TEMP 36.3–37.1; O2SAT 93–97; BMI 27.8
[2025-03-05 06:19] LABS: Bedside Glucose 133 mg/dL (74-106)
--- NOTE | 2025-03-05 07:29 | PN.HOSP_ITS ---
Reason for Visit Reason for Visit: L Hip pain s/p mechanical fall Subjective Subjective No issues overnight. Pain is 1-2/10 and well controlled on current meds. OR today at 4. Pt is slightly anxious. Objective Data Objective Data Vital Signs: Vital Signs Temp Pulse Resp BP Pulse Ox O2 Del Method 97.8 F 82 16 122/85 H 97 Room Air 03/05/25 02:25 03/05/25 02:25 03/05/25 02:25 03/05/25 02:25 03/05/25 02:25 03/05/25 02:25 Oxygen Delivery Method Room Air Weight: 80.649 kg Body Mass Index (BMI) 27.8 Intake & Output: Intake and Output for Last 24 Hours 03/03/25 03/04/25 03/05/25 23:59 23:59 23:59 Intake Total 1062.5 / 1062.5 Output Total 1800 / 1800 750 / 750 Balance -737.5 / -737.5 -750 / -750 Lab / Micro Data 03/05/25 06:25 03/05/25 06:25 Labs: Laboratory Results - last 24 hr 03/04/25 11:22: POC Glucose 112 H 03/04/25 16:43: POC Glucose 128 H 03/04/25 21:25: POC Glucose 99 03/05/25 05:59: POC Glucose 133 H Physical Exam Const alert, oriented x3, no apparent distress, average body habitus, healthy appearing and well nourished Constitutional Narrative: Pleasant, elderly, white male, lying in bed, appears comfortable currently, nontoxic General Appearance: cooperative HEENT normocephalic, head/scalp atraumatic, hearing grossly normal bilaterally and moist oral mucous membranes Eyes PERRL, EOMs intact bilaterally and conjunctivae normal Neck no lymphadenopathy, supple and no JVD Resp normal respiratory effort, no retractions, no use of accessory muscles and clear to auscultation bilaterally Auscultation: Negative for rales, rhonchi or wheezes Cardio regular rate, regular rhythm, S1 normal heart sound, S2 normal heart sound, no murmurs, no rub, no gallops and no clicks Cardio Narrative: Irregularly irregular at ~80 bpm. GI normal to inspection, nondistended, normoactive bowel sounds, soft to palpation, non-tender and non-distended Extremity no clubbing, cyanosis or edema Extremity Narrative: Left lower extremity is slightly shortened and externally rotated Skin Skin Narrative: Patient has no evidence of rash, abscess, wound or jaundice. Neuro oriented x3, CN's II-XII intact bilaterally, moves all extremities and no focal motor deficits Neuro Narrative: Unable to move left lower extremity due to pain left hip Sensorium / Orientation: awake, alert, oriented to person, oriented to place and oriented to time Speech: speech normal Psych affect normal Psych Narrative: Very pleasant, interacts appropriately Assessment & Plan Assessment/Plan (1) Fracture of femoral neck, left: QUALIFIERS: Encounter type: initial encounter Fracture type: kirsty losed Qualified Code(s): S72.002A - Fracture of unspecified part of neck of left femur, initial encounter for closed fracture (2) Fall: PLAN: Plan Acute impacted left femoral neck fracture status post mechanical fall -Patient was tripped by his dog's leash -It appears that anticipated surgery on due to Eliquis use diet and make n.p.o. after midnight -Continue Scheduled APAP 1000 mg q 8 hrs -continue PRN Oxy -Continue morphine for breakthrough until post-op -Long-term DVT prophylaxis per orthopedic surgery -Weightbearing status per orthopedic surgery -PT/OT consultation postoperatively -Ortho following and plan for OR today at 4 pm Hypokalemia/hypophosphatemia -40 mEq PO K replacement -30 mmol IV KPHOS replacement -recheck lab in am Chronic atrial fibrillation -Apixaban on hold -continue metoprolol DM-2 -A1c is 8.8 -Hold home metformin/Januvia -Cardiac/carb controlled diet -Continue home basal insulin will reduce dose this patient will be n.p.o. -Baseline doses 30 will use 15 for now since anticipated to be n.p.o. after midnight -SSI medium high-dose Essential hypertension/hyperlipidemia -Continue home statin -Will hold lisinopril until postoperative -continue metoprolol -Continue home amlodipine -As needed hydralazine Chronic diastolic heart failure -Patient is not on any diuretics at baseline -Hold IV fluids for now -Patient is currently euvolemic History of pancreatic insufficiency -Continue home Creon Erectile dysfunction -Patient with penile implant GERD -Continue home PPI DVT prophylaxis -SCDs for now -Restart Eliquis when able at the direction of orthopedic surgery CODE STATUS -Currently listed as CODE STATUS-unverified will verify with patient Charges/Coding Visit Charges Inpatient E&M: 95744 Subs Hosp L2
[2025-03-05 07:41] LABS: Hematocrit 38.3 % (40-54); Hemoglobin 13.4 g/dL (13.0-16.5); Mean Corpuscular Hgb 29.1 pg (27.0-32.0); Mean Corpuscular Volume 83.3 fL (80-94); Mean Platelet Vol. 10.1 fl (6.2-12.0); Platelet Count 152 K/mm3 (150-450); RBC Distribution Width CV 13.8 % (11.6-14.6); RBC Distribution Width SD 41.1 fl (35.1-43.9); White Blood Count 5.4 K/mm3 (4.4-11.0)
[2025-03-05 08:08] LABS: Anion Gap 11 (5-15); BUN 8 mg/dL (4-19); BUN/Creat Ratio 13.4 RATIO (10-20); Calcium,Total 8.2 mg/dL (7.6-11.0); Carbon Dioxide 23.4 mmol/L (21.0-32.0); Chloride 103 mmol/L (98-108); Creatinine, Serum 0.58 mg/dL (0.70-1.20); EST Glomerular Filtration Rate 105 (>60); Glucose 132 mg/dL (70-99); Magnesium 1.7 mg/dL (1.5-2.2); Phosphorus 2.4 mg/dL (2.7-4.5); Potassium 3.1 mmol/L (3.3-5.1); Sodium Level 138 mmol/L (133-145)
[2025-03-05] MEDS: Pantoprazole Sodium 40 MG Tablet PO (09:07)
[2025-03-05] MEDS: Metoprolol(XL)Succ 25 MG Tablet PO (09:07)
[2025-03-05] MEDS: amLODIPine 10 MG Tablet PO (09:09)
[2025-03-05] MEDS: 0.9% Saline Lock 10 ML Syringe IV (10:01)
[2025-03-05] MEDS: Potassium Phosphate 30 MM in 0.9% Normal Saline (250mL Bag) 250 ML 42 MM IV (10:12)
[2025-03-05] MEDS: Potassium Chloride Oral Tablet 20 MEQ 40 MEQ PO (10:29)
[2025-03-05 12:04] LABS: Bedside Glucose 121 mg/dL (74-106)
[2025-03-05] MEDS: Acetaminophen 500 MG Tablet 1000 MG PO ×2 (14:12→23:04)
--- NOTE | 2025-03-05 14:29 | PCM.PRE.AN2 ---
ASA Classification* ASA Classification ASA Classification: 3 Assessment & Plan Anesthesia* Anesthesia Assessment Anesthesia Assessment: Discussed sedation and/or anesthesia options, risks, benefits, and alternatives with patient/parents/legal guardian/POA. Questions invited. The patient/parents/legal guardian/POA seems to understand and agrees to proceed with anesthesia plan. Reviewed the physical assessment, medical history, allergy history and patient home medications list prior to surgery/procedure/anesthetic and documented any changes. Performed airway and anesthesia risk assessments. Anesthesia Type Anesthesia Type: General Anesthesia Focused Assessment* Temperature: 98.7 F Pulse Rate: 95 Blood Pressure: 131/98 Respiratory Rate: 16 Pulse Ox: 93 Airway Assessment Mouth opens: >3 cm Mallampati Score: II Focused Labs Anesthesia Preop lab: CBC WBC 5.4 K/mm3 (4.4-11.0) 03/05/25 06:03/05/25 RBC 4.60 M/mm3 (4.6-6.2) 03/05/25 06:03/05/25 Hgb 13.4 g/dL (13.0-16.5) 03/05/25 06:25 03/05/25 Hct 38.3 % (40-54) L 03/05/25 06:03/05/25 Plt Count 152 K/mm3 (150-450) 03/05/25 06:25 03/05/25 CHEMISTRY Potassium 3.1 mmol/L (3.3-5.1) L 03/05/25 06:25 03/05/25 Sodium 138 mmol/L (133-145) 03/05/25 06:25 03/05/25 Magnesium 1.7 mg/dL (1.5-2.2) 03/05/25 06:03/05/25 Phosphorus 2.4 mg/dL (2.7-4.5) L 03/05/25 06:03/05/25 BUN 8 mg/dL (4-19) 03/05/25 06:03/05/25 Creatinine 0.58 mg/dL (0.70-1.20) L 03/05/25 06:25 03/05/25 Glucose 132 mg/dL (70-99) H 03/05/25 06:25 03/05/25 POC Glucose 121 mg/dL (74-106) H 03/05/25 11:39 03/05/25 TSH 2.160 uIU/mL (0.300-4.200) 03/04/25 03:52 03/04/25 COAG PT 17.8 SECONDS (11.7-14.9) H 03/03/25 19:22 03/03/25 Pre-Assessment Diagnosis/Proposed Procedure Planned Operative Procedure(s): Left hip hemiarthroplasty Anesthesia History Anesthesia History - community organization director: Anesthesia History - community organization director Hx Hospitalization Any Problems With Anesthesia No 03/04/25 20:08 Cholinesterase deficiency No 03/04/25 20:08 You/Your Family Experience No 03/04/25 20:08 fever (hyperthermia) with Relationship Recent Exposure to Contagious No 03/04/25 20:08 Disease Does patient have nerve No 03/04/25 20:08 stimulator Patient instructed to have No 03/04/25 20:08 device shut off --Does patient have Pacemaker No 03/04/25 20:10 or ICD? When Was Last Pacemaker Check QUESTION #4 FULL TEXT: You/Your Family Experience fever (hyperthermia) with Anesthesia Last Oral Intake Last Oral intake: Last Oral Intake NPO since Meds taken in AM with sips of water? Meds patient instructed to take am of surgery PONV PONV - community organization director: PONV - community organization director Female HX of Motion Sickness HX of N/V After Surgery Non-Smoker Duration of Surgery greater than 60 minutes Number of Risk Factors PONV Score Height & Weight Height & Weight: Anesthesia: Height & Weight Height 5 ft 7 in 03/03/25 20:59 Weight: 80.649 kg 03/05/25 06:00 Body Mass Index (BMI) 27.8 03/05/25 06:00 Respiratory Assessment Respiratory Assessment - community organization director: Respiratory Tract Infection Hx - community organization director Hx Respiratory Tract Infection No 03/04/25 20:08 STOP Sleep Apnea STOP Sleep Apnea - community organization director: STOP Sleep Apnea - community organization director Hx Hypertension Yes 03/03/25 21:01 Hx Sleep Apnea No 03/03/25 21:01 CPAP BIPAP Do you snore loudly (louder Yes 03/03/25 21:01 than talking or can be heard Do you often feel tired/ No 03/03/25 21:01 fatigued/ sleepy during daytime? Has anyone observed you stop No 03/03/25 21:01 breathing during sleep? STOP Results Positive 03/03/25 21:01 QUESTION #5 FULL TEXT : Do you snore loudly (louder than talking or can be heard through closed doors)? Tobacco Use History Tobacco Use History - community organization director: Tobacco Use History - community organization director Tobacco Use Smoking Status Former smoker 03/03/25 21:01 Hx Tobacco Use No 03/03/25 21:01 Years Smoking Packs Smoked per Day Smoking Cessation Date was No - quit smoking greater 03/03/25 21:01 within the last 15 years than 15 years ago Hx Smoking Cessation Date Hx Smoking Cessation Counseling Hematologic Medial History Hematologic Hx - community organization director: Hematologic Medical Hx - advanced practice nurse Hx of Blood Transfusion No 03/03/25 21:01 Hx of Transfusion in last 3 No 03/03/25 21:01 Months Date of Last Transfusion (if within last 3 months) Ever experience any problems No 03/03/25 21:01 with transfusion(s)? Specify any problems Hx of Preganancy in last 3 N/A 03/03/25 21:01 Months Nurse Filling Out Transfusion DREDICK 03/03/25 21:01 & Questions: Date: 03/03/25 03/03/25 21:01 Time: 21:01 03/03/25 21:01 Patient unable to answer at this time (ie. confused, unrespo /Reproduction History /Reproductive History - community organization director: /Reproductive Hx- community organization director Hx Now No: NA 03/04/25 20:08 Gestational Age (in weeks): EDC: Hx Hx Para Hx Section SAB No 03/04/25 20:08 Active Medications Active Medications: Current Medications Generic Name Dose Route Start Last Admin Trade Name Freq PRN Reason Stop Dose Admin Acetaminophen 1,000 mg 03/04/25 09:00 03/05/25 14:12 Acetaminophen 500 Mg Tablet PO 1,000 mg Q8 KAREN Administration Al Hydroxide/Mg Hydroxide 30 ml 03/03/25 21:24 Mag Hydrox/Al Hydrox/Simeth 30 Ml Udc PO Q6H PRN PRN Gastric Burning Amlodipine Besylate 10 mg 03/04/25 10:00 03/05/25 09:09 Amlodipine 10 Mg Tablet PO 10 mg DAILY KAREN Administration Protocol Atorvastatin Calcium 40 mg 03/03/25 22:00 03/04/25 21:27 Atorvastatin Calcium 40 Mg Tablet PO 40 mg QHS KAREN Administration Glucagon 1 mg 03/03/25 21:24 Glucagon 1 Mg/Ml Syringe IM X1 PRN HYPOGLYCEMIA Protocol Hydralazine HCl 10 mg 03/04/25 09:12 Hydralazine 20 Mg/Ml Vial IV Q6H PRN PRN SBP>150 Protocol Sodium Chloride 100 mls @ 15 mls/hr 03/03/25 20:53 IV .Q6H40M PRN Saline Flush Sodium Chloride 100 mls @ 15 mls/hr 03/03/25 20:53 IV .Q6H40M PRN Additional IVPB Infusion Dextrose 250 mls @ 0 mls/hr 03/03/25 21:24 Dextrose 10%-Water IV .Q0M PRN HYPOGLYCEMIA Protocol As Directed Potassium Phosphate 30 mm/ 260 mls @ 42 mls/hr 03/05/25 09:30 03/05/25 10:12 Sodium Chloride IV 03/05/25 15:41 42 mls/hr X1 ONE Administration Cefazolin Sodium 2 gm/ N/A 20 mls @ 400 mls/hr 03/05/25 14:30 IV 03/05/25 14:32 PREOP ONE Tranexamic Acid 1,000 mg/ 110 mls @ 440 mls/hr 03/05/25 14:30 Sodium Chloride IV 03/05/25 14:44 X1 ONE Tranexamic Acid 1,000 mg/ 110 mls @ 440 mls/hr 03/05/25 15:30 Sodium Chloride IV 03/05/25 15:44 X1 ONE Insulin Glargine 15 unit 03/05/25 10:00 03/05/25 06:46 Insulin Glargine-Yfgn 100 Unit/Ml Pen SC Not Given DAILY KAREN Insulin Human Lispro 0 unit 03/04/25 11:00 03/05/25 12:46 Insulin Lispro 100 Unit/Ml Insuln.Pen SC Not Given TIDAC [facility] Protocol Lisinopril 10 mg 03/04/25 10:00 03/04/25 08:24 Lisinopril 10 Mg Tablet PO 10 mg DAILY KAREN Administration Protocol Magnesium Hydroxide 30 ml 03/03/25 21:24 Magnesium Hydroxide 30 Ml Udc PO DAILY PRN PRN Constipation Melatonin 3 mg 03/03/25 21:24 Melatonin 3 Mg Tablet PO QHS PRN PRN INSOMNIA Metoprolol Succinate 25 mg 03/04/25 10:00 03/05/25 09:07 Metoprolol(Xl)Succ 25 Mg Tablet PO 25 mg DAILY KAREN Administration Protocol Morphine Sulfate 2 mg 03/03/25 21:24 03/04/25 03:43 Morphine 2 Mg/Ml Syringe IV 2 mg Q4H PRN PRN Administration Pain Score 6-10 Ondansetron HCl 4 mg 03/03/25 19:13 Ondansetron 4 Mg/2 Ml Vial IV X1 PRN NAUSEA Ondansetron HCl 4 mg 03/03/25 21:24 Ondansetron 4 Mg/2 Ml Vial IV Q8H PRN PRN NAUSEA/VOMITING Oxycodone HCl 5 mg 03/04/25 08:51 03/04/25 20:27 Oxycodone 5 Mg Tablet PO 5 mg Q4H PRN PRN Administration Pain Score 4-5 or Pre PT/OT Pancrelipase 3 cap 03/04/25 08:00 03/05/25 06:46 Creon 12,[address] Capsule PO Not Given TIDCM KAREN Pantoprazole Sodium 40 mg 03/04/25 10:00 03/05/25 09:07 Pantoprazole Sodium 40 Mg Tablet PO 40 mg DAILY KAREN Administration Sodium Chloride 10 - 40 ml 03/03/25 20:53 03/05/25 10:01 0.9% Saline Lock 10 Ml Syringe IV 10 ml UD PRN Administration SALINE FLUSH [facility] Medical History Diastolic CHF New onset atrial fibrillation (04/2022) Venegas's palsy PUD (peptic ulcer disease) Kidney stone Long QT interval Erectile dysfunction Diverticulosis Essential hypertension Hyperlipidemia Type 2 diabetes mellitus without complication GERD (gastroesophageal reflux disease) Pancreatic insufficiency Home Medications ?Medication ?Instructions ?Recorded ?Last Taken ?Type amlodipine 10 mg tablet 10 mg PO DAILY bp 05/26/22 Unknown History apixaban 5 mg tablet (Eliquis) 5 mg PO BID blood thinner 05/26/22 Unknown History atorvastatin 40 mg tablet 40 mg PO QHS hld 05/26/22 Unknown History insulin glargine 100 unit/mL (3 30 unit subcut DAILY dm 05/26/22 Unknown History mL) subcutaneous pen (Basaglar KwikPen U-100 Insulin) [id number] 1 cap PO TID pancreatic 05/26/22 Unknown History 36,000-114,000-180,000 unit capsule,delay rel (Creon) lisinopril 10 mg tablet 10 mg PO DAILY bp 05/26/22 Unknown History metformin 500 mg tablet,extended 1,000 mg PO DAILY diabetes 05/26/22 Unknown History release 24 hr metoprolol succinate 25 mg 25 mg PO DAILY heart 05/26/22 Unknown History tablet,extended release 24 hr omeprazole 40 mg capsule,delayed 40 mg PO DAILY gerd 05/26/22 Unknown History release sitagliptin phosphate 100 mg 100 mg PO DAILY see md 05/26/22 Unknown History tablet (Januvia) Allergy/AdvReac Type Severity Reaction Status Date / Time canagliflozin (From Invokana) Allergy Unknown UTI Verified 03/03/25 18:37 saxagliptin (From Onglyza) Allergy Unknown muscle Verified 03/03/25 18:37 aches sildenafil (From Viagra) Allergy Unknown headaches Verified 03/03/25 18:37 Family History Father Cancer CAD (coronary artery disease) Sister Breast cancer Surgical History History of esophagogastroduodenoscopy (EGD) (01/17/18) History of colonoscopy (02/10/12) H/O circumcision (06/09/20) H/O repair of right rotator cuff H/O colonoscopy with polypectomy (01/17/18) Social History Smoking Status: Former smoker Smokeless tobacco user: chewing tobacco Electronic Cigarette Use: with nicotine how long ago did patient quit smokin years ago alcohol intake: current substance use type: does not use caffeine: Yes Type: carbonated beverages, coffee and tea Review of Systems (Anesthesia) ROS Narrative System reviewed and no additional complaints, except as documented.
--- NOTE | 2025-03-05 14:37 | PN.ORTHO_ITS ---
Subjective Subjective Saw patient in preop. Pain is in better control with medications. Again discussed surgery in detail. All risk benefits and alternatives were again discussed. Answered all questions. Patient will proceed with left hip hemiarthroplasty for left femoral neck fracture. Objective Data Objective Data Vital Signs: Vital Signs Temp Pulse Resp BP Pulse Ox O2 Del Method 98.7 F 95 16 131/98 H 93 Room Air 03/05/25 14:30 03/05/25 14:30 03/05/25 14:30 03/05/25 14:30 03/05/25 14:30 03/05/25 09:33 Oxygen Delivery Method Room Air Weight: 177 lb 12.8 oz Body Mass Index (BMI) 27.8 Intake & Output: Intake and Output for Last 24 Hours 03/03/25 03/04/25 03/05/25 23:59 23:59 23:59 Intake Total 1062.5 / 1062.5 Output Total 1800 / 1800 750 / 750 Balance -737.5 / -737.5 -750 / -750 Lab / Micro Data 03/05/25 06:25 03/05/25 06:25 Labs: Laboratory Results - last 24 hr 03/04/25 16:43: POC Glucose 128 H 03/04/25 21:25: POC Glucose 99 03/05/25 05:59: POC Glucose 133 H 03/05/25 06:25: WBC 5.4, RBC 4.60, Hgb 13.4, Hct 38.3 L, MCV 83.3, MCH 29.1, MCHC 35.0, RDW Std Deviation 41.1, RDW Coeff of Jocelin 13.8, Plt Count 152, MPV 10.1, Sodium 138, Potassium 3.1 L, Chloride 103, Carbon Dioxide 23.4, Anion Gap 11, BUN 8, Creatinine 0.58 L, Estim Creat Clear Calc 87.40, Est GFR (MDRD) Non- Af 105, BUN/Creatinine Ratio 13.4, Glucose 132 H, Calcium 8.2, Phosphorus 2.4 L, Magnesium 1.7 03/05/25 11:39: POC Glucose 121 H
[2025-03-05] MEDS: 0.9% Normal Saline (1000mL) 1,000 ML 15 ML IV ×2 (14:39→18:31)
--- NOTE | 2025-03-05 14:49 | NURSING ---
@ 1330 OR staff came to take pt who was scheduled @ 1600 pt went to area at that time
[2025-03-05] MEDS: Cefazolin 2 GM in Syringe IV (15:15)
[2025-03-05] MEDS: TRANEXAMIC ACID 1,000 MG in 0.9% Normal Saline (100mL Bag) 100 ML 440 MG IV ×2 (15:25→17:06)
--- NOTE | 2025-03-05 16:00 | FEM_PTH ---
PATIENT: CARLOS A MEI LOC: MS3 U#:[id number] AGE/SX: 69/M ROOM: [facility] RE03/03/[address]: Dr. Lisa Quigley DO : 1955 BED: 1 DIS: 03/06/2025 SPEC #: [id number] RECD: 03/06/25 08:28 STATUS: MOHINI REClaudine #: [id number] ZAHEER: 03/05/25 16:[address]: Reji Mckoy DEPT: SURGICAL PATHOLOGY RECD BY: Don Lezama ENTERED: 03/06/25 08:28 SP TYPE: FEM HEAD OTHR DR: DO Dr. Dante Pham DO Dr. Kathryn Lee, DO Tissues: A - Femoral region, NOS Procedures: Decalcification bone/plaque Surgery Specimen Level V HEADER OPERATION: Hemiarthroplasty, hip, left PRE-OP DIAGNOSIS: Left femoral neck fracture TISSUE SUBMITTED: A- Left femoral head MICROSCOPIC DIAGNOSIS A. Left femoral head, neck fracture, hemiarthroplasty: * Articular bone with reactive/degenerative changes and trilineage hematopoiesis. * Focal hemorrhage consistent with fracture. * No neoplasia is seen in these sections. MICROSCOPIC DESCRIPTION Slides are reviewed. GROSS DESCRIPTION A. Received in formalin in a container labeled with the patient's name, date of , and left femoral head is a 4.9 x 4.9 x 3.5 cm lara and firm femoral head with a shaggy and hemorrhagic margin. The cortical surfaces lara-brown and smooth. Multiple hemorrhagic and firm fragments of bone are received in the container measuring at 5.2 x 4.2 x 2.0 cm in aggregate. Sectioning reveals focally hemorrhagic, firm surfaces with no mass-like lesion identified. [employer] Dietary Service Supervisor sections submitted in A1 following decalcification. [facility] 03-06-2025 CPT:16723,03210
--- NOTE | 2025-03-05 16:09 | NURSING ---
All documentation by advanced nursing professor Pricilla Escalante reviewed by nursing educator Leonora PAULINO, RN.
[2025-03-05] MEDS: JPS (Morphine 10mg/ml) OPERA.SITE (16:42)
--- NOTE | 2025-03-05 17:05 | RAD_ITS ---
PROCEDURE: HIP MIN 2 VIEWS (PORTABLE) 03/05/2025 REASON FOR EXAM: LEFT JOHN ARTHROSCOPY, INTRAOPERATIVE TECHNIQUE: One (1) view of the left hip COMPARISON: Hip radiographs 03/03/2025. FINDINGS: Intraoperative left hemiarthroplasty in grossly anatomic positioning. Stable radiopaque markers overlying the lower pelvis, compatible with penile implant. RAD/Hip Min 2 Views (Portable) IMPRESSION: Intraoperative findings as described. Reading Location: [id number]
--- NOTE | 2025-03-05 17:58 | OP.PCM_ITS ---
Procedures Musculoskeletal 20xxx-29xxx: Other Procedure See Report Operative Report (Standard) Operative Information Date of Procedure: 03/05/25 Pre-Operative Diagnosis: Left femoral neck fracture displaced Post-Operative Diagnosis: Same Surgery/Procedure Performed: Left hip hemiarthroplasty cemented science instructor: Yes Nail Cutter: Tracee Wayne Tasks completed by physical therapist assistant: Closing, Removing tissue, Implanting device, Hemostasis: Electrocautery and Retracting Type of Anesthesia: General RN Documented Start/Stop Times: Operation Date: 03/05/25 16:00 Case Time Into Pre-Op 03/05/25 14:31 Out of Pre-Op 03/05/25 15:12 Anesthesia Start 03/05/25 15:15 Into Room 03/05/25 15:15 Procedure Start 03/05/25 15:47 Procedure Start Time: 15:47 Procedure Stop Time: 17:55 Select all DRAINS/GRAFTS/IMPLANTS that apply: Prosthetic device Prosthetic device details: Amanda Accolade C cemented hemiarthroplasty Estimated Blood Loss: 200 cc Specimen collected: No Description of surgery: PRINCIPAL PRE-OP DIAGNOSIS: Left FEMORAL NECK FRACTURE displaced PRINCIPAL POST-OP DIAG: Same PRINCIPAL PROCEDURE: Left cemented HIP HEMIARTHROPLASTY CPT 64912 Surgeon: Reji Mckoy MD ANESTHESIA: General Anesthesia Record E.B.L. 200 cc SPECIMENS: None COMPLICATIONS: None DISPOSITION: PACU then potentially floor Implants: [place] Accolade C cemented femoral stem, bipolar head OPERATIVE REPORT: INDICATION FOR SURGERY: Patient sustained a ground-level fall on the left hip with a subsequent displaced left femoral neck fracture. After discussion with the patient as well as family risk, patient elected for operative intervention with a hemiarthroplasty. Risks were discussed with the patient family including but not limited to blood loss, infection, nerve damage, instability, need for revision surgery, intraoperative fracture, cardiac arrest, . Patient signed consent for surgery. Patient was evaluated preoperatively by anesthesia who deemed the patient medically appropriate for the operating room. PROCEDURE: The patient was brought to the operating room and initial timeout was performed prior to induction of anesthesia. After confirming the patient's side, patient name with 2 unique identifiers as well as surgical plan, the patient was sedated per the anesthesiologist and intubated. Preoperative IV antibiotic was given. Patient was then placed in right lateral decubitus position with a beanbag and all bony prominences well-padded. The left lower extremity was sterilely prepped and draped in standard fashion. A second confirmatory timeout was completed which the patient's name and identification with 2 unique identifiers as well as the appropriate side and procedure was confirmed by everyone in the operating room. A standard posterior approach to the hip was performed with sharp dissection through the IT band and fascia. The piriformis tendon and some of the short external rotators were released off of the right hip and tagged. Capsulotomy was performed and tagging stitch was also placed in the capsule. The femoral neck was then cut 1 cm proximal to the lesser trochanter. The femoral head was then removed. The head measured a 47 and a trial of 46 and 47 mm were used. 47 mm head appeared to have a more stable fit. Next the femoral canal was prepped, the canal was broached up to a size 4 stem which had stable fixation. The canal was then prepped and a size 4 stem was cemented into the femur. After the cement was hard, a 47 mm shell +4 offset was trialed which had appropriate leg length, range of motion, and stability. Trial was then removed the acetabulum was irrigated to ensure there was no cement in the acetabulum. A 47 shell with a +4 head standard offset was then placed and hip was reduced. Stability was then confirmed as well as leg length and range of motion which were all adequate and appropriate. The wound was then again irrigated with Pulsavac saline. Betadine solution was then placed in the wound for 5 minutes & washed off. Irrisept solution was then placed in the wound for 1 minutes & washed off. The short external rotators were repaired as well as the capsule through 3 drill holes in the greater trochanter. Pain cocktail was then injected into the local soft tissues. The wound was then closed in layered f ashion with interrupted0 Vicryl, #2 strata fix for deep fascia, 2-0 Vicryl for subcutaneous. And the skin was closed with esha. Wound was covered with mepilex dressing. The patient was awoken from anesthesia which they tolerated well. Patient was then taken to the PACU in stable fashion. Patient will be weightbearing as tolerated with posterior hip precautions of the left lower extremity. They will complete a course of postoperative DVT prophylaxis. We will see them back in clinic in 2 weeks for x-rays, wound check. Surgical Findings: See operative note Complications Complications: No
--- NOTE | 2025-03-05 18:25 | RAD_ITS ---
PROCEDURE: HIP MIN 2 VIEWS (PORTABLE) 03/05/2025 REASON FOR EXAM: S/P HEMIARTHROPLASTY TECHNIQUE: Immediately postop lateral and AP views of the pelvis. COMPARISON: Intraoperative radiographs earlier same day. FINDINGS: Hardware: Left hemiarthroplasty in anatomic alignment. Bones: No acute fracture or aggressive osseous lesions. Joints: Stable right hip joint and bilateral SI joints. Soft tissues: Postoperative soft tissue swelling and air. Surgical esha along the left lateral hip. Other: Stable penile implant prosthesis. RAD/Hip Min 2 Views (Portable) IMPRESSION: Postoperative left hemiarthroplasty. Reading Location: [id number]
--- NOTE | 2025-03-05 18:42 | POSTOP.ANE_ITS ---
Anesthesia: Postop Eval I Current Vital Signs Temperature: 97.8 F Pulse Rate: 112 Blood Pressure: 91/65 Respiratory Rate: 16 Pulse Ox: 96 Oxygen Delivery Method: Nasal Cannula Oxygen Flow Rate (L/min): 3 Assessment Airway patent: Yes Spontaneous unlabored respirations: Yes nausea: No Vomiting: No Anesthesia Complication: No Fluid Hydration Crystalloid volume administer (ml): 1,000 Total IV fluid infused: 1,000 Progress Note Post-operative progress note: patient in chronic afib, now heart rate 110- 125bpm. Dr Quigley aware. will monitor HR on floor, possibly hydrate verses cardizem. Anesthesia document: Postop Eval 1 completed: Yes
--- NOTE | 2025-03-05 18:44 | PCM.POSTANE2 ---
Anesthesia Postop Eval I Sum Postop Eval Completion status Anesthesia document: Postop Eval 1 completed: Yes Anesthesia Postop Eval I Summary Anesthesia Postop Eval I Summary: Anesthesia Postop Eval I: Assessment Summary Airway patent Yes 03/05/25 18:44 Spontaneous unlabored Yes 03/05/25 18:44 respirations Mental status nausea No 03/05/25 18:44 Vomiting No 03/05/25 18:44 Anesthesia Postop Eval I: Fluid Summary Crystalloid volume administer 1,000 03/05/25 18:44 (ml) Colloids volume administered ( ml) Blood Product volume administered (ml) Total IV fluid infused 1,000 03/05/25 18:44 Anesthesia Postop Eval I: Summary Notes Anesthesia Complication No 03/05/25 18:44 Anesthesia Complication Comment: Post-operative progress note patient in chronic 03/05/25 18:44 afib, now heart rate 110-125bpm. Dr Quigley aware. will monitor HR on floor, possibly hydrate verses cardizem. Anesthesia: Postop Eval II Evaluation Mental status: Awake Pain Level: 2 nausea: No Vomiting: No
[2025-03-05 19:35] LABS: Bedside Glucose 178 mg/dL (74-106)
[2025-03-05] MEDS: Digoxin 250 MCG/ML Ampul 500 MCG IV (20:53)
[2025-03-05] MEDS: Atorvastatin Calcium 40 MG Tablet PO (23:04)
[2025-03-05] MEDS: APIXABAN 2.5 MG TABLET (WCH) PO (23:04)
[2025-03-06 00:38] VITALS: BP 91/59; PULSE 91; RESP 12; TEMP 36.6; O2SAT 96
[2025-03-06 04:30] VITALS: BMI 28.5
[2025-03-06 05:15] VITALS: BP 99/71; PULSE 78; RESP 16; TEMP 36.6; O2SAT 96
[2025-03-06] MEDS: Acetaminophen 500 MG Tablet 1000 MG PO (05:49)
[2025-03-06 06:41] LABS: Hematocrit 38.1 % (40-54); Hemoglobin 12.9 g/dL (13.0-16.5); Mean Corp Hgb Conc 33.9 g/dL (32-36); Mean Corpuscular Hgb 29.5 pg (27.0-32.0); Mean Platelet Vol. 9.9 fl (6.2-12.0); Platelet Count 208 K/mm3 (150-450); RBC Distribution Width CV 13.8 % (11.6-14.6); RBC Distribution Width SD 43.2 fl (35.1-43.9); Red Blood Count 4.38 M/mm3 (4.6-6.2); White Blood Count 8.8 K/mm3 (4.4-11.0)
[2025-03-06] MEDS: Insulin Lispro 100 UNIT/ML INSULN.PEN SC ×2 (06:44→11:41)
[2025-03-06 07:00] LABS: Bedside Glucose 411 mg/dL (74-106)
[2025-03-06 07:13] LABS: AST(SGOT) 28 U/L (<=37); Alanine Aminotransfer ALT/SGPT 29 U/L (<=46); Albumin, Serum 3.3 g/dL (3.4-4.8); Alkaline Phosphatase 95 U/L (40-129); Anion Gap 13 (5-15); BUN 16 mg/dL (4-19); BUN/Creat Ratio 15.9 RATIO (10-20); Calcium,Total 7.8 mg/dL (7.6-11.0); Carbon Dioxide 20.5 mmol/L (21.0-32.0); Chloride 101 mmol/L (98-108); Creatinine, Serum 0.99 mg/dL (0.70-1.20); EST Glomerular Filtration Rate 82 (>60); Estimated Creatinine Clearance 71.36 ml/min (50-250); Globulin 3.3 g/dL (2.2-4.2); Glucose 449 mg/dL (70-99); Potassium 4.3 mmol/L (3.3-5.1); Protein, Total 6.5 g/dL (5.9-8.4); Sodium Level 135 mmol/L (133-145)
[2025-03-06 07:32] VITALS: O2SAT 98
[2025-03-06] MEDS: Creon 12,000 unit DR CapSULE 3 CAP PO ×2 (08:24→11:41)
[2025-03-06] MEDS: Calcium Carbonate 500 MG Tablet PO ×2 (08:35→11:42)
[2025-03-06 08:36] VITALS: PULSE 88
[2025-03-06] MEDS: metFORMIN (XR) 500 MG Tablet 1000 MG PO (08:36)
[2025-03-06] MEDS: APIXABAN 5 MG TABLET PO (08:36)
[2025-03-06] MEDS: Metoprolol(XL)Succ 25 MG Tablet PO (08:36)
[2025-03-06] MEDS: Cholecalciferol (VIT D3) 25 MCG TABLET (1,000 UNITS) PO (08:37)
[2025-03-06] MEDS: Pantoprazole Sodium 40 MG Tablet PO (08:37)
[2025-03-06 08:38] VITALS: BP 99/67; PULSE 88; RESP 18; TEMP 36.6; O2SAT 96
[2025-03-06] MEDS: Insulin Glargine-YFGN 100 UNIT/ML Pen 30 UNIT SC (10:45)
--- NOTE | 2025-03-06 10:45 | CASEMGMT ---
Addendum entered by James Kearns 03/06/25 15:08: Discharge order is in. BERNIE LERNER to room. Script for handicap [facility] placard obtained from Dr Quigley and provided to pt and son along w/form and instructions to take to [facility]. They would like to have discharge Rx's sent to pt's room. Call placed to Sasha in the pharmacy and she was made aware. Pt and son deny having any further discharge needs or concerns. Addendum entered by James Kearns 03/06/25 11:59: Script for OP PT obtained from Dr Quigley and given to pt and son & instructed on use. Original Note: BERNIE LERNER NOTE: Therapy notes have been reviewed. Pt ambulated 200 ft today, OP therapy recommended. WBAT. BERNIE LERNER to room. Pt sitting on edge of bed, son in room visiting. Introduced self and role. Discussed discharge and therapy. Pt verifies he plans to dc to sons home, which has only 1 step to enter. He declines wanting any HHC and is interested in OP therapy. Made aware a script will be provided and he can take to any location of choice. Son states he really liked it @ [facility], so pt will most likely go there. Pt and son would like to get any new Rx's @ dc from [facility] retail pharmacy. Son inquiring about handicap placard for vehicle. Dr Quigley entered room at that time and states will be willing to sign for this. Pt and son denied having any other discharge needs or concerns. Chele PAULINO RN, CM
[2025-03-06 11:40] LABS: Bedside Glucose > 500 mg/dL (74-106)
[2025-03-06 12:25] LABS: Glucose 555 mg/dL (70-99)
[2025-03-06 13:00] VITALS: BP 103/69; PULSE 91; RESP 18; TEMP 36.6; O2SAT 96
[2025-03-06 13:55] LABS: Bedside Glucose 393 mg/dL (74-106)
[2025-03-06] MEDS: Insulin Lispro 100 UNIT/ML INSULN.PEN 20 UNIT SC (13:57)
--- NOTE | 2025-03-06 13:57 | PCM.DC.SUM ---
Providers Date of Admission: 03/03/25 Date of Discharge: 03/06/25 Primary Care Physician: Dr. Dante Renee DO Reason For Visit: LEFT HIP FRACTURE AFTER FALL Diagnosis Discharge Diagnosis (1) Fracture of femoral neck, left: Status: Acute Code(s): S72.002A - Fracture of unspecified part of neck of left femur, initial encounter for closed fracture Qualifiers: Encounter type: initial encounter Fracture type: closed Qualified Code(s): S72.002A - Fracture of unspecified part of neck of left femur, initial encounter for closed fracture (2) Fall: Status: Acute Code(s): W19.XXXA - Unspecified fall, initial encounter Medications at Discharge Home Medications amlodipine 10 mg tablet 10 mg PO DAILY bp 05/26/22 apixaban 5 mg tablet (Eliquis) 5 mg PO BID blood thinner 05/26/22 atorvastatin 40 mg tablet 40 mg PO QHS hld 05/26/22 insulin glargine 100 unit/mL (3 mL) subcutaneous pen (Basaglar KwikPen U-100 Insulin) 30 unit subcut DAILY dm 05/26/22 [id number] 36,000-114,000-180,000 unit capsule,delay rel (Creon) 1 cap PO TID pancreatic 05/26/22 lisinopril 10 mg tablet 10 mg PO DAILY bp 05/26/22 metformin 500 mg tablet,extended release 24 hr 1,000 mg PO DAILY diabetes 05/26/22 metoprolol succinate 25 mg tablet,extended release 24 hr 25 mg PO DAILY heart 05/26/22 omeprazole 40 mg capsule,delayed release 40 mg PO DAILY gerd 05/26/22 sitagliptin phosphate 100 mg tablet (Januvia) 100 mg PO DAILY see md 05/26/22 acetaminophen 500 mg tablet 1,000 mg (2 x 500 mg) PO Q8 #0 tabs 03/06/25 calcium carbonate 500 mg (2.5 x 200 mg calcium (500 mg)) PO TIDCM #0 tabs 03/06/25 cholecalciferol (vitamin D3) 25 mcg (1,000 unit) tablet 25 mcg PO DAILY #30 tabs 03/06/25 oxycodone 5 mg tablet 5 mg PO Q4H PRN PRN Pain Score 4-5 Or Pre Pt/Ot 3 days #18 tabs 03/06/25 Hospital Course Summary of Care Provided Minutes Spent on Discharge: 38 Hospital Course: Mr. Oliveira is a 69-year-old white male who presented to the emergency department [facility] on 03/03/2025 with left hip pain after mechanical fall. Patient reported that he was out with his dog and tripped over the leash and fell onto his left side. He denied loss of consciousness or significant head trauma but did complain of left hip pain following his fall. Fall resulted in severe pain and the patient was unable to ambulate following some squad was called. Vital signs on presentation showed temperature 98.2, heart rate 97, respiratory 16, blood pressure is 132/85 and pulse ox was 96% on room air. CBC was unremarkable. Coags were slightly elevated but anticipated due to apixaban use. Chemistry panel showed an elevated glucose at 244. Transaminases were elevated slightly but normalized this morning. Hip and pelvic x-rays showed an acute impacted femoral neck fracture, chest x-ray was unremarkable other than poor inspiratory effort and some basilar atelectasis bilaterally. CT of the brain was unremarkable other than for chronic microvascular ischemic changes. He was evaluated by orthopedic surgery on 03/04/2025 and surgery was held on until 03/05/2025 due to the fact that he takes Eliquis at baseline. He went to the operating room on 03/05/2024 at which time a left hip hemiarthroplasty was performed. He is to be weightbearing as tolerated. Posterior hip precautions are to be observed until otherwise instructed and instructions for these were given time of discharge. He is on Eliquis at baseline so we will continue this for DVT prophylaxis. He will need to be seen in the office in 2 weeks for x-rays and a wound check. He was evaluated by physical therapy postoperatively and did extremely well. His plan at discharge was to go to his son's house. He stated there he only has [address] he will have help all the time, for the time being. He did well enough that he can do outpatient therapy at the time of discharge and a prescription for this was given as well as a prescription for a walker and a handicap placard. He did have some elevated postoperative sugars probably related to the fact that his basal insulin was held and he was drinking higher sugary beverages and had a send minimal that was brought in by his son. No insulin changes were made. He was started on vitamin D and calcium at the time of discharge by orthopedic surgery. He was given a short supply of oxycodone to help with pain and was instructed to utilize Tylenol 1000 mg 3 times a day for the next 7 to 14 days scheduled and not to exceed that amount. Discharge diagnoses: Acute impacted left femoral neck fracture secondary to mechanical fall Hypokalemia-resolved Hypophosphatemia-resolved Chronic atrial fibrillation DM-2 Essential hypertension Hyperlipidemia Chronic diastolic heart failure History of pancreatic insufficiency ED GERD Physical Exam Const alert, oriented x3, no apparent distress, average body habitus, no limitations, healthy appearing and well nourished Constitutional Narrative: Pleasant, elderly, white male, lying in bed, appears comfortable currently, nontoxic, sitting up a chair General Appearance: cooperative HEENT normocephalic, head/scalp atraumatic, hearing grossly normal bilaterally and moist oral mucous membranes Eyes PERRL, EOMs intact bilaterally and conjunctivae normal Neck no lymphadenopathy, supple and no JVD Resp normal respiratory effort, no retractions, no use of accessory muscles and clear to auscultation bilaterally Auscultation: Negative for rales, rhonchi or wheezes Cardio regular rate, regular rhythm, S1 normal heart sound, S2 normal heart sound, no murmurs, no rub, no gallops and no clicks Cardio Narrative: irreg/irreg rhythm GI normal to inspection, nondistended, normoactive bowel sounds, soft to palpation, non-tender and non-distended GI Narrative: shelley in place Extremity no clubbing, cyanosis or edema Extremity Narrative: Left lower extremity is slightly shortened and externally rotated Skin Skin Narrative: Patient has no evidence of rash, abscess, wound or jaundice. Neuro oriented x3, CN's II-XII intact bilaterally, moves all extremities and no focal motor deficits Neuro Narrative: Unable to move left lower extremity due to pain left hip Sensorium / Orientation: awake, alert, oriented to person, oriented to place and oriented to time Speech: speech normal Psych affect normal Psych Narrative: Very pleasant, interacts appropriately Weight / BMI Weight Weight: 82.5 kg Body Mass Index (BMI) 28.5 ABG / Lab / Microbiology Data 03/06/25 06:08 03/06/25 11:35 Laboratory: Laboratory Results - last 24 hr 03/05/25 18:49: POC Glucose 178 H 03/06/25 06:05: POC Glucose 411 H 03/06/25 06:08: WBC 8.8, RBC 4.38 L, Hgb 12.9 L, Hct 38.1 L, MCV 87.0, MCH 29.5, MCHC 33.9, RDW Std Deviation 43.2, RDW Coeff of Jocelin 13.8, Plt Count 208, MPV 9.9, Sodium 135, Potassium 4.3, Chloride 101, Carbon Dioxide 20.5 L, Anion Gap 13, BUN 16, Creatinine 0.99, Estim Creat Clear Calc 71.36, Est GFR (MDRD) Non-Af 82, BUN/Creatinine Ratio 15.9, Glucose 449 H, Calcium 7.8, Total Bilirubin 1.10, AST 28, ALT 29, Alkaline Phosphatase 95, Total Protein 6.5, Albumin 3.3 L, Globulin 3.3, Albumin/Globulin Ratio 1.0 03/06/25 11:12: POC Glucose > 500 H* 03/06/25 11:35: Glucose 555 H* 03/06/25 13:35: POC Glucose 393 H Radiography Diagnostic Testing: Radiology Impression Hip X-Ray 03/05/25 17:05 IMPRESSION: Intraoperative findings as described. Reading Location: [facility] Hip X-Ray 03/05/25 18:25 IMPRESSION: Postoperative left hemiarthroplasty. Reading Location: [facility] D/C Instructions Discharge Diet: Low fat / Low cholesterol and 1800 Calorie Control Diet Discharge Activity: Return to Normal Activity, Use Walker and - (Posterior hip precautions) Weight Bearing Status: Weight bearing as tolerated Keep extremity elevated above heart level: Operative Extremity Remove Dressing in: 1 week (After surgery) Cleanse incision/area with: Soap & Water (After dressing is off), Do not get Incision Wet (Until able to take off dressing) and Keep Dressing Clean & Dry (Until dressing is removed) DC O2, CPAP, BIPAP Needs Home O2 Discharge instructions: No DC home with Oxygen: No Please Follow Up With: Reji Mckoy MD When: 2 weeks Meaningful Use Info Meaningful Use Meaningful Use Diagnoses (Choose all that apply): None applicable Ischemic Stroke Statin Dosing Therapy Reference: STATIN DOSE THERAPY REFERENCE: * Patients > 75 years receive moderate or high dose statin therapy. * Patients 75 years or YOUNGER should receive HIGH intensity statin dose unless contraindicated. You will be required to document reason for non-treatment if statin daily dose does not meet guidelines. HIGH DOSE STATIN THERAPY DAILY Atorvastatin > than or = to 40 mg Rosuvastatin > than or = to 20 mg Amlodipine + Atorvastatin > than or = to 2.5/40 mg Ezetimibe + Simvastatin 10/80 mg Simvastatin 80mg Discharge Plan Admission Admit Date/Time: 03/03/25 20:30 Primary Reason for Your Visit: Left hip pain after fall Attending Provider: Lisa Quigley Primary Care Provider: Dante Renee Consulting Providers: Mio Luther Discharge Orders/Prescriptions Prescriptions: New acetaminophen 500 mg Tablet 1,000 mg PO Q8 Qty: 0 0RF Rx Instructions: I recommend taking two 500 mg tablets 3 times a day scheduled for the next 7 to 14 days Do not exceed this amount calcium carbonate 200 mg calcium (500 mg) Tablet,Chewable 500 mg PO TIDCM Qty: 0 0RF cholecalciferol (vitamin D3) 25 mcg (1,000 unit) Tablet 25 mcg PO DAILY Qty: 30 1RF oxycodone 5 mg Tablet 5 mg PO Q4H PRN PRN (Reason: Pain Score 4-5 Or Pre Pt/Ot) 3 Days Qty: 18 0RF Continued metformin 500 mg tablet extended release 24 hr 1,000 mg PO DAILY insulin glargine [Basaglar KwikPen U-100 Insulin] 100 unit/mL (3 mL) insulin pen 30 unit subcut DAILY Januvia 100 mg tablet 100 mg PO DAILY omeprazole 40 mg capsule,delayed release(DR/EC) 40 mg PO DAILY amlodipine 10 mg tablet 10 mg PO DAILY atorvastatin 40 mg tablet 40 mg PO QHS lisinopril 10 mg tablet 10 mg PO DAILY Creon 36,000-114,000- 180,000 unit capsule,delayed release(DR/EC) 1 cap PO TID Rx Instructions: administer with meals and/or snacks Eliquis 5 mg tablet 5 mg PO BID metoprolol succinate 25 mg tablet extended release 24 hr 25 mg PO DAILY Referrals / Follow Up: Reji Mckoy MD [Med Staff - Active Staff] - Within 2 Weeks Dante Renee, [Primary Care Provider] - Within 2 Weeks Disposition Disposition (needs filled in before D/C Order can be placed): Home, Self Care Charges/Coding Visit Charges Inpatient E&M: 84771 Disch Hosp >30min
--- NOTE | 2025-03-06 14:35 | PN.ORTHO_ITS ---
Subjective Subjective Patient is postop day 1 left hip hemiarthroplasty. Patient is doing well postoperatively with his pain well-managed the patient says that he feels a lot better compared to yesterday. Patient has been up and walking after the surgery and says that he does have some mild pain associated with weightbearing however he is still able to complete it. Patient is cleared for home discharge from therapy however they do recommend outpatient physical therapy. Seen with Dr. Mckoy. Objective Data Objective Data Vital Signs: Vital Signs Temp Pulse Resp BP Pulse Ox O2 Del Method O2 Flow Rate 97.9 F 91 18 103/69 96 Room Air 2 03/06/25 13:00 03/06/25 13:00 03/06/25 13:00 03/06/25 13:00 03/06/25 13:00 03/06/25 08:38 03/06/25 05:15 Oxygen Flow Rate (L/min) 2 Oxygen Delivery Method Room Air Weight: 181 lb 14.102 oz Body Mass Index (BMI) 28.5 Intake & Output: Intake and Output for Last 24 Hours 03/04/25 03/05/25 03/06/25 23:59 23:59 23:59 Intake Total 1062.5 / 1062.5 1710 / 1710 500 / 500 Output Total 1800 / 1800 1325 / 1325 700 / 700 Balance -737.5 / -737.5 385 / 385 -200 / -200 Lab / Micro Data 03/06/25 06:08 03/06/25 11:35 Labs: Laboratory Results - last 24 hr 03/05/25 18:49: POC Glucose 178 H 03/06/25 06:05: POC Glucose 411 H 03/06/25 06:08: WBC 8.8, RBC 4.38 L, Hgb 12.9 L, Hct 38.1 L, MCV 87.0, MCH 29.5, MCHC 33.9, RDW Std Deviation 43.2, RDW Coeff of Jocelin 13.8, Plt Count 208, MPV 9.9, Sodium 135, Potassium 4.3, Chloride 101, Carbon Dioxide 20.5 L, Anion Gap 13, BUN 16, Creatinine 0.99, Estim Creat Clear Calc 71.36, Est GFR (MDRD) Non-Af 82, BUN/Creatinine Ratio 15.9, Glucose 449 H, Calcium 7.8, Total Bilirubin 1.10, AST 28, ALT 29, Alkaline Phosphatase 95, Total Protein 6.5, Albumin 3.3 L, Globulin 3.3, Albumin/Globulin Ratio 1.0 03/06/25 11:12: POC Glucose > 500 H* 03/06/25 11:35: Glucose 555 H* 03/06/25 13:35: POC Glucose 393 H Radiography Diagnostic Testing: Radiology Impression Hip X-Ray 03/05/25 17:05 IMPRESSION: Intraoperative findings as described. Reading Location: [facility] Hip X-Ray 03/05/25 18:25 IMPRESSION: Postoperative left hemiarthroplasty. Reading Location: [facility] Physical Exam Narrative Neurological examination of the lower extremity shows 5X5 power. Normal sensation across all dermatomes. Patient is neurovascularly intact. Physical examination of the left hip shows a surgical dressing CDI. Const alert, oriented x3 and no apparent distress Assessment & Plan Assessment/Plan (1) Status post hemiarthroplasty of left hip: PLAN: Plan Patient is postop day 1 left hip hemiarthroplasty. Patient is doing well postoperatively with his pain well-managed. Plan for discharge today with the patient going to live with his son. Patient is clear for discharge from orthopedics standpoint, pending hospitalist clearance. Patient is cleared from therapy for discharge, they do recommend outpatient physical therapy. Reviewed posterior hip precautions. Encouraged use of the incentive spirometer. He can remove dressing after 1 week and cover incision with bandaids. Follow-up in the clinic in 2 weeks. Patient is in agreement.
[2025-03-06 15:23] LABS: Bedside Glucose 408 mg/dL (74-106)
== END 2025-03-06 15:35 | disposition home or self-care (01) | DRG 522 ==
LOC: ED 20:02 → MS3 21:08
PROVIDERS: Orthopaedic Surgery Orthopaedic Surgery of the Spine; Student in an Organized Health Care Education/Training Program; Admitting Provider Internal Medicine; Emergency Provider Emergency Medicine; PCP Family Medicine; Referring Provider Internal Medicine; Visit Provider Internal Medicine
PROC: 0SRS039 Replacement of Left Hip Joint, Femoral Surface with Ceramic Synthetic Substitute, Cemented, Open Approach (ICD-10-PCS; CPT 27125; principal; 2025-03-05 15:40)
DX: S72.002A Fracture of unspecified part of neck of left femur, initial encounter for closed fracture (principal); I50.32 Chronic diastolic (congestive) heart failure; I48.20 Chronic atrial fibrillation, unspecified; E83.39 Other disorders of phosphorus metabolism; I11.0 Hypertensive heart disease with heart failure; E11.9 Type 2 diabetes mellitus without complications; M19.90 Unspecified osteoarthritis, unspecified site; E78.5 Hyperlipidemia, unspecified; K21.9 Gastro-esophageal reflux disease without esophagitis; E87.6 Hypokalemia; Z79.4 Long term (current) use of insulin; W01.0XXA Fall on same level from slipping, tripping and stumbling without subsequent striking against object, initial encounter; Z79.01 Long term (current) use of anticoagulants; Z87.891 Personal history of nicotine dependence; N52.9 Male erectile dysfunction, unspecified; Z82.49 Family history of ischemic heart disease and other diseases of the circulatory system; E66.3 Overweight; Z68.27 Body mass index [BMI] 27.0-27.9, adult
CPT/HCPCS: 36415; 70450; 71045; 73502; 80048; 80053; 82947; 82962; 83036; 83735; 84100; 84443; 85025; 85027; 85610; 85730; 86850; 86900; 86901; 88307; 88311; 93005; 94668; 97162; 97166; 99285; C1776; A4216; J2405

== ENCOUNTER → 2025-09-02 | Outpatient (CLI) | payer MEDICARE, SELFPAY ==
--- NOTE | 2025-09-02 08:52 | US_ITS ---
PROCEDURE: ABDOMEN LIMITED 09/02/2025 REASON FOR EXAM: ELEVATED LIVER ENZYMES TECHNIQUE: Procedure Code: USABDL Modality: US Procedure: ABDOMEN LIMITED COMPARISON: None FINDINGS: Liver: Hepatomegaly. The liver measures 17.4 cm. It is of homogeneous echotexture. Gallbladder: No stones, sludge, wall thickening or tenderness. Common bile duct: Normal measuring 3 mm. . Pancreas: There is a 3.2 cm x 2.8 cm cyst in the head of the pancreas. Other: Visualized portions of the right kidney are unremarkable. There is evidence of a 3.6 cm 4.1 cm 3.2 cm cyst. No right upper quadrant ascites. US/Abdomen Limited IMPRESSION: Hepatomegaly. 3.2 cm x 2.8 cm cyst in the head of the pancreas. 3.6 cm x 4.1 cm 3.2 cm right renal cyst. Reading Location: [id number]
== END | disposition home or self-care (01) ==
PROVIDERS: PCP Family Medicine; Referring Provider Family Medicine; Visit Provider Family Medicine
DX: R74.8 Abnormal levels of other serum enzymes (principal)
CPT/HCPCS: 76705